=== PATIENT | male | born 1965 | race Caucasian/White ===

== ENCOUNTER 2020-05-18 04:06 | Inpatient (IN) | payer BC, SELFPAY ==
[2020-05-18] VITALS (12 sets, daily range): BP systolic 122–194; BP diastolic 75–113; PULSE 83–107; RESP 16–22; TEMP 36.4–38.6; O2SAT 90–100; BMI 29.1; BMI 27.6; BMI 24.8
--- NOTE | 2020-05-18 04:28 | XR_ITS ---
PROCEDURE: XR CHEST PORTABLE CLINICAL HISTORY: fever COMPARISON: No exams were available for comparison FINDINGS: The cardiomediastinal silhouette and pulmonary vascularity are within normal limits. The lungs are clear without infiltrates, suspicious nodules, or pleural effusions. No acute bony abnormalities. IMPRESSION: No acute findings. Dictated by: Ahmet Del Valle MD 05/18/2020 07:33 Ahmet Del Valle MD in [place] 05/18/2020 07:33
--- NOTE | 2020-05-18 04:35 | CT_ITS ---
PROCEDURE: CT ABDOMEN PELVIS W CON CLINICAL INDICATION: abdominal pain,constipation Nausea COMPARISON: No exams were available for comparison TECHNIQUE: IV Contrast: 75ML OPTIRAY 350 Oral Contrast None Axial images obtained with sagittal and coronal reformats. All CT scans at the facility use one or more dose reduction, viz: automated exposure control, ma/kV adjustment per patient size (including targeted exams where dose is matched to indication, i.e. head), or iterative reconstruction technique. FINDINGS: LOWER THORAX: There is a small hiatal hernia with nonspecific thickening of the distal esophagus. There are coronary artery calcifications ABDOMEN & PELVIS: A 2 cm hypodensity is present in the left hepatic lobe segment 2 and may represent a hepatic cyst and could be confirmed with ultrasound if clinically warranted. The spleen is enlarged at 15 cm. There is mild nodularity of the left adrenal gland nonspecific. The pancreas has an unremarkable appearance. There is a 5 mm stone in the mid polar region of the left kidney and may be within a calyceal diverticulum.. No hydronephrosis. No ureteral calculus. The gallbladder slightly distended. There is a moderate amount of retained colonic feces. No evidence of appendicitis or diverticulitis. There is a Malloy catheter present. No pelvic mass or abnormal fluid collection or focal inflammatory change. There is a sclerotic focus within the right femoral neck and the right acetabular region may be due to bone islands. Part of the left abdominal wall and spleen has not been included on the study. Will ask for the technologist to Ree process and see if this area can be included. If not then the exam will need to be repeated to include this area of the abdomen. IMPRESSION: No definite acute finding. There is a mild amount of retained colonic feces suggesting constipation. Please see above for detail. Mild splenomegaly. Incomplete evaluation of the spleen and left lateral abdominal wall as described above. Left nephrolithiasis. There is a small stone in a calyceal diverticulum Dictated by: Ahmet Del Valle MD 05/18/2020 07:06 Ahmet Del Valle MD in [facility] 05/18/2020 07:06
[2020-05-18 04:37] LABS: Microscopic, Urine URINE MICROSCOPIC (MICROSCOPIC)
[2020-05-18 04:41] LABS: Chloride 96 mmol/L (98-107)
[2020-05-18 04:42] LABS: Potassium 4.4 mmoL/L (3.5-5.1); Sodium 133 mmol/L (136-145)
[2020-05-18 04:43] LABS: Basophils # 0.1 K/mm3 (0-0.2); Basophils % 0.3 % (0.1-2.0); Eosinophils # 0.1 K/mm3 (0.0-0.4); Eosinophils % 0.2 % (0.1-12.0); Hematocrit 45.4 % (42.0-52.0); Hemoglobin 15.8 g/dL (14.1-18.0); Lymphocytes # 2.1 K/mm3 (0.7-4.5); Lymphocytes % 8.5 % (10-50); Mean Corpuscular HGB Conc 34.8 g/dL (31.8-35.4); Mean Corpuscular Volume 97.6 fl (80-94); Mean Platelet Volume 8.1 fl (7.4-10.4); Monocytes % 8.3 % (1.7-9.3); Neutrophils # 20.4 K/mm3 (1.8-7.8); Neutrophils % 82.7 % (37.0-80.0); Platelet Count 197 K/mm3 (142-424); Red Blood Count 4.65 M/mm3 (4.60-6.20); Red Cell Distribution Width 13.8 % (11.5-17.5); White Blood Count 24.6 K/mm3 (4.8-10.8)
[2020-05-18 04:44] LABS: Amylase 189 U/L (30-110); Anion Gap 19.4 mEq/L (5-15); Bilirubin,Unconjugated 1.3 mg/dL (0.0-1.1); Blood Urea Nitrogen 19 mg/dl (9-20); Carbon Dioxide 22 mmol/L (22.0-30.0); Creatinine Clearance Estimated 147 mL/min (50-200); Estimated Glomerular Filt Rate 101 ml/min (>60); GFR (African American) 122 ML/MIN (>60)
[2020-05-18 04:45] LABS: Alanine Aminotransferase 26 U/L (12-78); Albumin Level 4.2 g/dl (3.5-5.0); Alkaline Phosphatase 136 U/L (38-126); Aspartate Amino Transferase 21 U/L (17-59); Bilirubin,Direct 0.2 mg/dl (0.0-0.4); Bilirubin,Indirect 1.2 mg/dL (0.0-0.9); Bilirubin,Total 1.4 mg/dl (0.2-1.3); Calcium 9.7 mg/dl (8.4-10.2); Glucose 362 mg/dl (74-100)
[2020-05-18 04:59] LABS: Appearance,Urine CLEAR (Clear); Bilirubin,Urine Negative (Negative); Blood, Urine 1+ (Negative); Color,Urine YELLOW (Yellow); Glucose,Urine (UA) 3+ (Negative); Ketones,Urine Negative (Negative); Leukocyte Esterase,Urine TRACE (Negative); Nitrate,Urine Negative (Negative); PH,Urine 5.5 (5.0-8.5); Protein,Urine 1+ (Negative); Urobilinogen,Urine 0.2 EU/dl (0.2)
[2020-05-18 05:01] LABS: Lactic Acid 2.9 mmol/L (0.7-2.1); Lipase 788 U/L (23-300); MANUAL DIFFERENTIAL MANUAL DIFFERENTIAL (MANUAL DIFF)
[2020-05-18 05:17] LABS: Amorphous Sediment,Urine Trace /lpf; Bacteria,Urine 1+ /lpf; Mucus,Urine 1+ /lpf
[2020-05-18 05:45] LABS: Lymphocytes % 11 % (10-50); Monocytes % 8 % (2-9); Neutrophils % 80 % (42-76); Platelet Estimate Normal; RBC Morphology Normal; Total Cells Counted 100
--- NOTE | 2020-05-18 06:10 | PC.NURSE ---
PT TO CT VIA STRETCHER
--- NOTE | 2020-05-18 06:29 | HMH.EDNVD ---
ED Disposition Clinical Impression: Severe sepsis with acute organ dysfunction, Elevated lipase, Elevated amylase, Neuropathy Abdominal pain Qualifiers: Abdominal location: generalized Qualified Code(s): R10.84 - Generalized abdominal pain Diabetes mellitus Qualifiers: Diabetes mellitus type: type 1 Diabetes mellitus complication status: with neurologic complications Diabetes mellitus complication detail: with polyneuropathy Qualified Code(s): E10.42 - Type 1 diabetes mellitus with diabetic polyneuropathy Disposition: Admitted As Inpatient Condition on Discharge: Fair Instructions: DI for Acute Abdomen Referrals: PCP,No [Primary Care Provider] - - Critical Care Critical Care Time: No Attestation: On 05/18/20, the high probability of a clinically significant, sudden or life threatening deterioration of the following system(s) required my full and direct attention, intervention and personal management. The time I documented below is in addition to time spent performing reported procedures but includes the following listed in this critical care notation. Medical Decision Making - Medical Records Medical records reviewed: Yes: I reviewed the patient's medical records. - Jonathan Inquiry Pt receiving controlled substance: No Vital Signs: 05/18/20 04:07 05/18/20 04:44 05/18/20 05:37 Temperature 101.5 F H Temperature Source Rectal Pulse Rate [Right Radial] 107 H 102 H 91 H Respiratory Rate 22 18 18 Blood Pressure [Right Arm] 194/113 H 171/75 H 184/95 H Blood Pressure Mean [Right Arm] 140 107 124 Blood Pressure Source [Right Arm] Automatic Cuff Blood Pressure Position [Right Arm] Supine 02 Sat by Pulse Oximetry 99 97 95 Oxygen Delivery Method Room Air Room Air Room Air 05/18/20 06:06 Temperature Temperature Source Pulse Rate [Right Radial] 95 H Respiratory Rate 20 Blood Pressure [Right Arm] 192/103 H Blood Pressure Mean [Right Arm] 132 Blood Pressure Source [Right Arm] Blood Pressure Position [Right Arm] Supine 02 Sat by Pulse Oximetry 98 Oxygen Delivery Method Room Air - Lab Data Lab results reviewed: Yes: I reviewed the patient's lab results. Lab Results 05/18/20 04:10: WBC 24.6 H*, RBC 4.65, Hgb 15.8, Hct 45.4, MCV 97.6 H, MCH 34.0 H, MCHC 34.8, RDW 13.8, Plt Count 197, MPV 8.1, Neut % (Auto) 82.7 H, Lymph % (Auto) 8.5 L, [place] % (Auto) 8.3, Eos % (Auto) 0.2, Baso % (Auto) 0.3, Neut # (Auto) 20.4 H, Lymph # (Auto) 2.1, [place] # (Auto) 2.0 H, Eos # (Auto) 0.1, Baso # (Auto) 0.1, Total Counted 100, Neutrophils % (Manual) 80 H, Lymphocytes % (Manual) 11, Monocytes % (Manual) 8, Basophils % (Manual) 1.0, Platelet Estimate Normal, RBC Morphology Normal 05/18/20 04:10: Sodium 133 L, Potassium 4.4, Chloride 96 L, Carbon Dioxide 22, Anion Gap 19.4 H, BUN 19, Creatinine 0.80, Estimated Creat Clear 147, Estimated GFR 101, Est GFR ( Amer) 122, Glucose 362 H, Calcium 9.7, Total Bilirubin 1.4 H, Direct Bilirubin 0.2, Conjugated Bilirubin 0.0, Indirect Bilirubin 1.2 H, Unconjugated Bilirubin 1.3 H, AST 21, ALT 26, Alkaline Phosphatase 136 H, Total Protein 8.0, Albumin 4.2, Amylase 189 H 05/18/20 04:10: Lactate 2.9 H 05/18/20 04:10: Lipase 788 H 05/18/20 04:20: Urine Color Yellow, Urine Appearance Clear, Urine pH 5.5, Ur Specific [place] 1.020, Urine Protein 1+, Urine Glucose (UA) 3+, Urine Ketones Negative, Urine Blood 1+, Urine Nitrate Negative, Urine Bilirubin Negative, Urine Urobilinogen 0.2, Ur Leukocyte Esterase Trace, Urine RBC 3-5, Urine WBC 5-10, Amorphous Sediment Trace, Urine Bacteria 1+, Urine Mucus 1+ Result diagrams: 05/18/20 04:10 05/18/20 04:10 Orders (Tests/Meds): ED MEDICATIONS Generic Name Dose Route Start Last Admin Trade Name Tim PRN Reason Stop Dose Admin Ertapenem 1 gm/ Sodium 50 mls @ 100 mls/hr 05/18/20 07:45 05/18/20 07:38 Chloride IV 06/01/20 07:44 100 mls/hr Q24H ABDI Administration Protocol Discontinued Medications Generic Name Dose Route Start La
--- NOTE | 2020-05-18 06:36 | PC.NURSE ---
PT REMAINS IN CT
[2020-05-18 08:21] LABS: Amphetamine/Metha Screen,Urine Negative ng/ml (<1000); Benzodiazepines Screen,Urine Negative ng/ml (<200)
[2020-05-18 08:22] LABS: Barbiturates Screen,Urine Negative ng/ml (<200)
[2020-05-18 08:23] LABS: Cannabinoid Screen,Urine Positive ng/ml (<50); Cocaine Screen,Urine Negative ng/ml (<300)
[2020-05-18 08:24] LABS: Methadone Screen,Urine Negative ng/ml (<300)
--- NOTE | 2020-05-18 08:24 | HMH.HP ---
*Admission Date: 05/18/20 *Chief complaint: Unable to void *History of present illness: 55-year-old male presented to the ER by EMS for abd pain. On arrival to the ER pt patient states diffuse abd pain, constipation, chills, feet hurting secondary to DM2, and states hx of sepsis w/ similar symptoms. Pt has unstagable ulcers to bilat great toes. Pt self caths at home 3-4 times a day. 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 Patient states he is from [facility] but came here for a sister that lives close. Patient states he has had a neutropenic bladder for over a year and is been seen a urologist. Patient states when surprised him if he had a bladder infection because of having the cath so many times and not living in a clean environment. Patient admitted for sepsis and further work-up with urology consult. [facility] History I have reviewed the patient's past medical history: Yes Medical History: Reports:: Diabetes Mellitus Type 2 Denies:: Cancer, Diabetes Mellitus Type 1, MRSA *Have you ever received a pneumonia vaccine?: No *Have you received a flu vaccine this season?: No Amputation: No Fractures: No - *Social History Smoking Status: Current every day smoker # Packs/Day (cigarettes): 1 Alcohol Intake: never Substance Use Type: marijuana, painkillers *Occupational Status:: unemployed Housing: house Household Members: family *Travel in the last 8 weeks: None Family Hx:: No significant family history Review of Systems - Review of Systems Review of systems:: pertinent systems reviewed and negative unless documented below - Constitutional Reports fatigue, Reports fever(s), Reports weakness - Eyes Denies change in vision - ENT Denies bleeding gums, Denies sinus pressure - *Cardiovascular Reports leg sores, Denies chest pain with activity, Denies excessive sweating - *Respiratory Denies change in phlegm color - *Gastrointestinal Denies belching, Denies nausea, Denies vomiting - *Genitourinary Reports decreased urination - *Musculoskeletal Denies body aches - Integumentary/Breasts Reports sores, Denies bleeding lesions, Denies rash - *Neurologic Denies frequent falls, Denies seizure-like activity - Psychiatric Denies lack of enjoyment - Endocrine Denies excessive sweating - Hematologic/Lymphatic Denies easy bruising - Allergic/Immunologic Denies itchy eyes Meds Home Medications Medication Instructions Recorded Confirmed Type lisinopriL [Lisinopril 20mg Tab] 20 mg PO DAILY 05/18/20 05/18/20 History Allergies Allergy/AdvReac Type Severity Reaction Status Date / Time No Known Allergies Allergy Verified 05/18/20 04:27 Exam Vital signs and Labs for Last 24 Hours: Temp Pulse Resp BP Pulse Ox 101.5 F H 89 20 185/105 H 98 05/18/20 04:07 05/18/20 07:52 05/18/20 06:06 05/18/20 07:52 05/18/20 06:06 Laboratory Results - last 24 hr 05/18/20 04:10: WBC 24.6 H*, RBC 4.65, Hgb 15.8, Hct 45.4, MCV 97.6 H, MCH 34.0 H, MCHC 34.8, RDW 13.8, Plt Count 197, MPV 8.1, Neut % (Auto) 82.7 H, Lymph % (Auto) 8.5 L, [place] % (Auto) 8.3, Eos % (Auto) 0.2, Baso % (Auto) 0.3, Neut # (Auto) 20.4 H, Lymph # (Auto) 2.1, [place] # (Auto) 2.0 H, Eos # (Auto) 0.1, Baso # (Auto) 0.1, Total Counted 100, Neutrophils % (Manual) 80 H, Lymphocytes % (Manual) 11, Monocytes % (Manual) 8, Basophils % (Manual) 1.0, Platelet Estimate Normal, RBC Morphology Normal 05/18/20 04:10: Sodium 133 L, Potassium 4.4, Chloride 96 L, Carbon Dioxide 22, Anion Gap 19.4 H, BUN 19, Creatinine 0.80, Estimated Creat Clear 147, Estimated GFR 101, Est GFR ( Amer) 122, Glucose 362 H, Calcium 9.7, Total Bilirubin 1.4 H, Direct Bilirubin 0.2, Conjugated Bilirubin 0.0, Indirect Bilirubin 1.2 H, Unconjugated Bilirubin 1.3 H, AST 21, ALT 26, Alkaline Phosphatase 136 H, Total Protein 8.0, Albumin 4.2, Amylase 189 H 05/18/20 04:10: Lactate 2.9 H 05/18/20 04:10: Lipase
[2020-05-18 08:25] LABS: Opiate Screen,Urine Negative ng/ml (<300); Phencyclidine Screen,Urine Negative ng/ml (<25)
--- NOTE | 2020-05-18 08:31 | PC.NURSE ---
Received report from Jean Barfield RN @ this time. Pt still needs IGG/IGM antibodies done before admission to floor, Ebony Hardin notified of this.
[2020-05-18 08:35] LABS: Reflex Lactic Add Lactic Reflex
--- NOTE | 2020-05-18 08:37 | PC.NURSE ---
REPORT CALLED TO FLOOR
[2020-05-18 09:03] LABS: Coronavirus 19 IgG Antibody Negative (Negative); Coronavirus 19 IgM Antibody Negative (Negative)
--- NOTE | 2020-05-18 09:19 | PC.NURSE ---
pt arrived to the floor at this time
--- NOTE | 2020-05-18 11:19 | P.CONPHA_ITS ---
[facility] Pharmacy VTE Monitoring - Patient Demographics Admission date: 05/18/20 Report Date: 05/18/20 Time: 11:20 Allergies/Adverse Reactions: Patient Allergies No Known Allergies Allergy (Verified 05/18/20 04:27) Height: 1.83 m Weight: 83.121 kg Patient Problems: Current Active Problems Severe sepsis with acute organ dysfunction (Acute) Abdominal pain (Acute) Elevated lipase (Acute) Elevated amylase (Acute) Diabetes mellitus (Acute) Neuropathy (Acute) Neurogenic bladder (Acute) - VTE Risk Labs: VTE Related Lab Results Hgb 15.8 g/dL (14.1-18.0) 05/18/20 04:10 Hct 45.4 % (42.0-52.0) 05/18/20 04:10 Plt Count 197 K/mm3 (142-424) 05/18/20 04:10 BUN 19 mg/dl (9-20) 05/18/20 04:10 Creatinine 0.80 mg/dl (0.66-1.25) 05/18/20 04:10 Estimated Creat Clear 147 mL/min (50-200) 05/18/20 04:10 Was VTE Risk Assessment Performed: Yes VTE Score: 7 VTE Risk Level: Moderate Risk Clinical Trial Participant: No - Prophylaxis VTE Prophylaxis Ordered?: Yes Types of VTE Prophylaxis: TEDS Knee High
--- NOTE | 2020-05-18 11:24 | SW/DCPLANNER ---
I have spoke with this patient regarding discharge plans. Patient stated that he has been homeless since the end of March. Patient stated that he has lost his job and his home. Patient has stayed at [facility] some nights in [facility]. Patient stated that his girlfriend resides in [place] and he may live with her at time of discharge. Patient stated that his sister resides here in [place] but he can not live with her due to it not being clean and subsidized housing. I spoke with patient regarding homeless longterm in surrounding areas and patient stated that he is not interested stating I have too high of a morale for a longterm . Patient has refused resources at this time. I will follow up with patient this evening regarding any questions or concerns he may have for time of discharge. Discharge date is unknown at this time.
--- NOTE | 2020-05-18 11:31 | HMH.PHAINT ---
CLARIFIED HOME MEDICATION LIST WITH [facility] IN [place].
[2020-05-18 12:04] LABS: POC Glucose,Bedside 300 (70-110)
--- NOTE | 2020-05-18 12:34 | HMH.CONS ---
*Admission Date: 05/18/20 *Reason for consult:: History of hypotonic bladder/possible urosepsis *History of present illness: Patient is a 55-year-old white male who gives a history of neurogenic bladder diagnosed by Dr. Harrison Leo, a urologist in the [facility]. Patient states this was recently diagnosed in 2018 and that he had a Malloy catheter for about a year and has been self catheterizing 3-4 times a day for the past year. He uses disposable catheters. He states his social situation has deteriorated the past few months due to the COVID 19 pandemic and he is bounced around from a place to place but states he has been compliant with catheterizing 3-4 times a day. He recently has been in the [facility] with friends. He is referred for possible urologic source of sepsis. He was admitted with lower abdominal pain early this morning. His white count was elevated at 24,000. Creatinine is normal at 0.8. His electrolytes are normal. His alkaline phosphatase amylase and lipase are elevated. His urinalysis shows a trace amount of leukocyte esterase and 1+ bacteria but is nitrite negative. Malloy catheter was placed and clear urine is currently draining. He denies any recent problems catheterizing and denies any cloudy urine with catheterizations. A CT scan was performed which showed no acute findings. There was a mild amount of retained colonic feces. Small stone noted in the left lateral renal calyx. It is nonobstructing. Patient states a previous episode of abscess about a year ago. He denies any alcohol use but does admit to marijuana use. He states that he is able to void small amounts between catheterizations usually. He is currently on Invanz. [facility] History Medical History: Reports:: Diabetes Mellitus Type 2, Hypertension Denies:: Cancer, Diabetes Mellitus Type 1, MRSA *Have you ever received a pneumonia vaccine?: No *Have you received a flu vaccine this season?: Yes Other Surgeries: Yes: Hernia Repair Amputation: No Fractures: No - *Social History Last grade of school completed: GED Smoking Status: Current every day smoker Tobacco Type: cigarettes # Packs/Day (cigarettes): 1 Alcohol Intake: never Substance Use Type: marijuana Last Used Substance: just [employer] *Occupational Status:: unemployed Housing: homeless Household Members: family *Travel in the last 8 weeks: None Family Hx:: Diabetes, Heart Attack, Mental illness Review of Systems - Review of Systems Review of systems:: pertinent systems reviewed and negative unless documented below - *Neurologic Reports weakness, Denies frequent falls, Denies seizure-like activity Meds Home Medications Medication Instructions Recorded Confirmed Type Insulin Glargine,Hum.rec.anlog 20 unit SQ DAILY 05/18/20 05/18/20 History [Basaglar Kwikpen U-100] Insulin Lispro [Insulin Lispro 0 - 12 unit SQ TIDWM 05/18/20 05/18/20 History Kwikpen U-100] Pregabalin [Lyrica 100mg Cap] 100 mg PO TID 05/18/20 05/18/20 History lisinopriL [Lisinopril 40mg Tablet] 20 mg PO DAILY 05/18/20 05/18/20 History Allergies Allergy/AdvReac Type Severity Reaction Status Date / Time No Known Allergies Allergy Verified 05/18/20 04:27 Exam Vital signs and Labs for Last 24 Hours: Temp Pulse Resp BP Pulse Ox 98.1 F 92 H 18 137/79 90 L 05/18/20 09:26 05/18/20 09:26 05/18/20 09:26 05/18/20 09:26 05/18/20 09:26 Laboratory Results - last 24 hr 05/18/20 04:10: WBC 24.6 H*, RBC 4.65, Hgb 15.8, Hct 45.4, MCV 97.6 H, MCH 34.0 H, MCHC 34.8, RDW 13.8, Plt Count 197, MPV 8.1, Neut % (Auto) 82.7 H, Lymph % (Auto) 8.5 L, [place] % (Auto) 8.3, Eos % (Auto) 0.2, Baso % (Auto) 0.3, Neut # (Auto) 20.4 H, Lymph # (Auto) 2.1, [place] # (Auto) 2.0 H, Eos # (Auto) 0.1, Baso # (Auto) 0.1, Total Counted 100, Neutrophils % (Manual) 80 H, Lymphocytes % (Manual) 11, Monocytes % (Manual) 8, Basophils % (Manual) 1.0, Platelet Estimate Normal, RBC Morphology Normal 05/18/20 04:10: Sodium 133 L, Pota
--- NOTE | 2020-05-18 14:56 | US_ITS ---
PROCEDURE: US GALLBLADDER CLINICAL INDICATION: abd pain COMPARISON: CT CT ABDOMEN PELVIS W CON from 05/18/2020 FINDINGS: Pancreas: Unremarkable/Not well seen Liver: There is a small hepatic cyst within the left hepatic lobe measuring 2 cm.. There is appropriate direction of blood flow within a non dilated portal vein. Right kidney: Unremarkable appearing. No hydronephrosis. Gallbladder: No stones are evident. There is no gallbladder wall thickening. Common duct is normal in diameter. IMPRESSION: Negative gallbladder ultrasound. No stones evident. 2 cm hepatic cyst Dictated by: Ahmet Del Valle MD 05/19/2020 09:54 Ahmet eDl Valle MD in [place] 05/19/2020 09:54
[2020-05-18 15:44] LABS: Amylase 113 U/L (30-110)
[2020-05-18 15:45] LABS: Lipase 174 U/L (23-300)
[2020-05-18 17:17] LABS: POC Glucose,Bedside 261 (70-110)
[2020-05-18 18:23] LABS: Ethyl Alcohol < 10 mg/dl (0-10)
[2020-05-18 20:32] LABS: POC Glucose,Bedside 209 (70-110)
[2020-05-19] VITALS: BP 126/78; PULSE 94; RESP 16; TEMP 36.9; O2SAT 95
[2020-05-19 04:00] VITALS: BP 131/78; PULSE 86; RESP 18; TEMP 36.9; O2SAT 97
--- NOTE | 2020-05-19 05:28 | PC.NURSE ---
shift summary, pt has been appropriate and cooperative entire shift, was anxious at beginning of shift, but did calm down as shift progressed, has complained of pain in lower left abdomen and nausea, both treated per mar with satisfactory results, pt has not slept this shift and has been talkative about his living situation, pt has ambulated in his room, and took a shower, hanson is in place, draining cloudy mindi urine, systolic BP from 122-131, HR 83-94, and has remained afebrile
[2020-05-19 05:42] VITALS: BMI 24.5
[2020-05-19 05:53] LABS: POC Glucose,Bedside 203 (70-110)
[2020-05-19 06:56] LABS: Basophils % 0.2 % (0.1-2.0); Eosinophils # 0.1 K/mm3 (0.0-0.4); Eosinophils % 0.4 % (0.1-12.0); Hematocrit 37.5 % (42.0-52.0); Lymphocytes # 1.5 K/mm3 (0.7-4.5); Lymphocytes % 10.4 % (10-50); Mean Corpuscular HGB Conc 34.7 g/dL (31.8-35.4); Mean Corpuscular Hemoglobin 33.9 pg (27.0-31.2); Mean Corpuscular Volume 97.6 fl (80-94); Monocytes % 7.4 % (1.7-9.3); Neutrophils # 11.4 K/mm3 (1.8-7.8); Neutrophils % 81.7 % (37.0-80.0); Platelet Count 156 K/mm3 (142-424); Red Blood Count 3.84 M/mm3 (4.60-6.20); Red Cell Distribution Width 13.1 % (11.5-17.5)
[2020-05-19 07:09] LABS: Chloride 102 mmol/L (98-107); Sodium 134 mmol/L (136-145)
[2020-05-19 07:10] LABS: Potassium 4.2 mmoL/L (3.5-5.1)
[2020-05-19 07:12] LABS: Amylase 78 U/L (30-110); Anion Gap 10.2 mEq/L (5-15); Blood Urea Nitrogen 21 mg/dl (9-20); Carbon Dioxide 26 mmol/L (22.0-30.0); Creatinine Clearance Estimated 165 mL/min (50-200); Estimated Glomerular Filt Rate 141 ml/min (>60); GFR (African American) 171 ML/MIN (>60); Lipase 106 U/L (23-300)
[2020-05-19 07:13] LABS: Glucose 220 mg/dl (74-100)
--- NOTE | 2020-05-19 07:34 | PC.NURSE ---
pt had no episodes of vomiting t/o shift
[2020-05-19 08:00] VITALS: BP 135/72; PULSE 79; RESP 18; TEMP 36.6; O2SAT 98
[2020-05-19 08:10] VITALS: O2SAT 98
[2020-05-19 10:54] VITALS: BMI 24.5
--- NOTE | 2020-05-19 11:06 | HMH.DCSUM ---
General - General Admission date:: 05/18/20 Discharge date: 05/19/20 HPI HPI: 55-year-old male presented to the ER by EMS for abd pain. On arrival to the ER pt patient states diffuse abd pain, constipation, chills, feet hurting secondary to DM2, and states hx of sepsis w/ similar symptoms. Pt has unstagable ulcers to bilat great toes. Pt self caths at home 3-4 times a day. 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 Patient states he is from [facility] but came here for a sister that lives close. Patient states he has had a neutropenic bladder for over a year and is been seen a urologist. Patient states when surprised him if he had a bladder infection because of having the cath so many times and not living in a clean environment. Patient admitted for sepsis and further work-up with urology consult. Hospital Course Hospital Course: pt has did better with bowel rest and ivf and meds - no fever reported and he reports he thinks he can tolerate diet - he was seen by urology-janine is a 55-year-old white male who gives a history of neurogenic bladder diagnosed by Dr. Harrison Leo, a urologist in the [facility]. Patient states this was recently diagnosed in 2018 and that he had a Malloy catheter for about a year and has been self catheterizing 3-4 times a day for the past year. He uses disposable catheters. He states his social situation has deteriorated the past few months due to the COVID 19 pandemic and he is bounced around from a place to place but states he has been compliant with catheterizing 3-4 times a day. He recently has been in the [facility] with friends. He is referred for possible urologic source of sepsis. He was admitted with lower abdominal pain early this morning. His white count was elevated at 24,000. Creatinine is normal at 0.8. His electrolytes are normal. His alkaline phosphatase amylase and lipase are elevated. His urinalysis shows a trace amount of leukocyte esterase and 1+ bacteria but is nitrite negative. Malloy catheter was placed and clear urine is currently draining. He denies any recent problems catheterizing and denies any cloudy urine with catheterizations. A CT scan was performed which showed no acute findings. There was a mild amount of retained colonic feces. Small stone noted in the left lateral renal calyx. It is nonobstructing. Patient states a previous episode of abscess about a year ago. He denies any alcohol use but does admit to marijuana use. He states that he is able to void small amounts between catheterizations usually. He is currently on Invanz. no growth at this time on urine culture and blood considered to be not infective - his labs have improved - he wishes to be d/c today despite our wish for am - he will resume prev treatment and may see us next week and gb u/s was neg and declined and marriage and family social worker help for his home issues . Objective Vital signs: Temp Pulse Resp BP Pulse Ox 97.9 F 79 18 135/72 98 05/19/20 08:00 05/19/20 08:00 05/19/20 08:00 05/19/20 08:00 05/19/20 08:10 no acute distress - *Routine HEENT Exam Head: Present: normocephalic Eye: Present: EOMI, PERRL ENT: Present: mucous membranes dry - *Routine Neck Exam Present: supple - *Routine Respiratory Exam Absent: respiratory distress - *Routine Cardiovascular Exam Present: RRR - *Routine Abdominal Exam Present: soft - *Routine Extremities Exam Present: full ROM - Routine Back/Spine/Pelvis Exam Back/Spine: Present: full ROM - *Routine Skin Exam Present: intact - *Routine Neurological Exam Present: alert, CN II-XII intact - Routine Psychiatric Exam Present: normal affect Results Labs on day of discharge: Labs from last 24 hours 05/19/20 05/19/20 05/19/20 06:28 06:28 05:46 WBC 14.0 H D RBC 3.84 L Hgb 13.0 L Hct 37.5 L MCV 97.6 H MCH 33.9 H MCHC 34.
[2020-05-19 11:16] LABS: Calcium 8.7 mg/dl (8.4-10.2)
--- NOTE | 2020-05-19 11:40 | PC.NURSE ---
A&OX4. PT HAS TOLERATED ROOM AIR WELL THROUGHOUT SHIFT. RESPIRATIONS REGULAR AND UNLABORED. LUNG SOUNDS BILATERALLY CLEAR. ACTIVE BOWEL SOUNDS HEARD IN ALL 4 QUADRANTS. SOFT AND NONTENDER. SANTIAGO CATH REMOVED W 10ML PULLED OUT OF BALLOON. URINE NOTED CLOUDY AND YELLOW. PT HAS REPORTED NAUSEA ONCE AND WAS ADMINISTERED ZOFRAN. ON REASSESSMENT, PT STATED NAUSEA HAD EASED. NO VOMITTING WITNESSED BUT PT STATES HE HAS THROWN UP. I SAW PATIENT W FINGER DOWN HIS THROAT TRYING TO GAG HIMSELF. PT STATES HE WANTS TO GO HOME. HE HAS BEEN VERY ANXIOUS AND PACING THE HALLWAY AND HIS ROOM SINCE THE BEGINNING OF SHIFT. NO REPORTS OF PAIN. HAND ANIMAL THERAPIST EQUAL. +2 PULSES NOTED THROUGHOUT. PT IS CURRENTLY LYING IN BED RESTING. BED IN LOWEST POSITION. CALL LIGHT WITHIN REACH. VSS. WILL CONTINUE TO MONITOR. PT IS GETTING READY TO BE DISCHARGED. IV IS GETTING READY TO BED REMOVED. PHARMACY AT BEDSIDE TEACHING MEDS. GOING TO LET PT EAT LUNCH THEN WILL DISCHARGE HIM. PT VERBALIZES UNDERSTANDING OF EVERYTHING AND DISCHARGE INSTRUCTIONS.
[2020-05-19 19:58] LABS: POC Glucose,Bedside 286 (70-110)
== END 2020-05-19 12:05 | disposition home or self-care (01) | DRG 698 ==
LOC: ER 08:03 → 2ND 08:16
PROVIDERS: Nurse Practitioner Family; Admitting Provider Emergency Medicine; Emergency Provider Emergency Medicine; Visit Provider Emergency Medicine
DX: N31.9 Neuromuscular dysfunction of bladder, unspecified (principal); R65.20 Severe sepsis without septic shock; E11.42 Type 2 diabetes mellitus with diabetic polyneuropathy; Z72.0 Tobacco use; Z79.4 Long term (current) use of insulin; Z59.0 Homelessness
CPT/HCPCS: 36415; 71045; 74177; 76705; 80048; 80076; 80305; 81001; 82150; 82962; 83036; 83605; 83690; 85007; 85025; 86328; 87040; 87077; 87086; 87088; 87186; 96365; 96366; 96367; 96375; 96376; 99285; J1335; J2405; Q9967

== ENCOUNTER 2020-11-25 14:14 | Emergency (ER) | payer BC, SELFPAY ==
--- NOTE | 2020-11-25 13:57 | ECG_ITS ---
APPROVED REPORT Exam: Resting ECG HR:77 bpm ECG Measurements Heart Rate 77 AXES MN 148 P 13 QRSd 98 QRS 33 QT 354 T 34 QTc 400 Conclusion Normal sinus rhythm Normal ECG Electronically signed by : Barry Otoole, 11/26/2020 21:10:05
[2020-11-25 14:28] VITALS: BP 134/89; PULSE 82; RESP 18; TEMP 36.8; O2SAT 98; BMI 27.1
--- NOTE | 2020-11-25 14:35 | XR_ITS ---
PROCEDURE: XR CHEST PORTABLE CLINICAL HISTORY: CHEST PAIN COMPARISON: CR XR CHEST PORTABLE from 05/18/2020 FINDINGS: The cardiomediastinal silhouette and pulmonary vascularity are within normal limits. The lungs are clear without infiltrates, suspicious nodules, or pleural effusions. No acute bony abnormalities. IMPRESSION: No acute findings. Dictated by: Dr. Eliseo June MD 11/25/2020 15:50 Dr. Eliseo June MD in [place] 11/25/2020 15:50
[2020-11-25 14:44] LABS: Basophils % 0.4 % (0.1-2.0); Eosinophils # 0.1 K/mm3 (0.0-0.4); Eosinophils % 1.2 % (0.1-12.0); Hematocrit 47.8 % (42.0-52.0); Hemoglobin 15.6 g/dL (14.1-18.0); Lymphocytes % 25.4 % (10-50); Mean Corpuscular HGB Conc 32.6 g/dL (31.8-35.4); Mean Corpuscular Volume 98.1 fl (80-94); Mean Platelet Volume 7.6 fl (7.4-10.4); Monocytes # 0.8 K/mm3 (0.1-1.0); Monocytes % 6.4 % (1.7-9.3); Neutrophils # 7.7 K/mm3 (1.8-7.8); Neutrophils % 66.6 % (37.0-80.0); Platelet Count 195 K/mm3 (142-424); Red Blood Count 4.87 M/mm3 (4.60-6.20); Red Cell Distribution Width 12.8 % (11.5-17.5); White Blood Count 11.6 K/mm3 (4.8-10.8)
[2020-11-25 14:55] LABS: Anion Gap 12.5 mEq/L (5-15); Blood Urea Nitrogen 9 mg/dl (9-20); Calcium 9.6 mg/dl (8.4-10.2); Carbon Dioxide 25 mmol/L (22.0-30.0); Chloride 103 mmol/L (98-107); Creatinine Clearance Estimated 157 mL/min (50-200); Estimated Glomerular Filt Rate 118 ml/min (>60); GFR (African American) 143 ML/MIN (>60); Glucose 274 mg/dl (74-100); Potassium 4.5 mmoL/L (3.5-5.1); Sodium 136 mmol/L (136-145)
[2020-11-25 15:07] LABS: Troponin I < 0.01 ng/ml (0.00-0.034)
--- NOTE | 2020-11-25 15:34 | HMH.EDGENADL ---
ED Disposition Clinical Impression: Pyelonephritis Disposition: Home, Self-Care Condition on Discharge: Fair Additional Instructions: Take medication as prescribed. May take Tylenol and ibuprofen as needed for fever reduction and pain relief Please follow-up with your PCP in 3 to 5 days If symptoms persist or worsen, please return to the ED for further evaluation Prescriptions: Cefdinir [Omnicef 300mg Capsule] 300 mg PO BID #10 cap Prescription Printed Referrals: PCP,No [Primary Care Provider] - - Critical Care Critical Care Time: No Attestation: On 11/25/20, the high probability of a clinically significant, sudden or life threatening deterioration of the following system(s) required my full and direct attention, intervention and personal management. The time I documented below is in addition to time spent performing reported procedures but includes the following listed in this critical care notation. Medical Decision Making - Medical Records Medical records reviewed: Yes: I reviewed the patient's medical records. - Jonathan Inquiry Pt receiving controlled substance: No Vital Signs: 11/25/20 14:28 Temperature 98.3 F Temperature Source Oral Pulse Rate [Right] 82 Respiratory Rate 18 Blood Pressure [Right Arm] 134/89 Blood Pressure Mean [Right Arm] 104 02 Sat by Pulse Oximetry 98 Oxygen Delivery Method Room Air - Lab Data Lab Results 11/25/20 14:13: WBC 11.6 H, RBC 4.87, Hgb 15.6, Hct 47.8, MCV 98.1 H, MCH 32.0 H, MCHC 32.6, RDW 12.8, Plt Count 195, MPV 7.6, Neut % (Auto) 66.6, Lymph % (Auto) 25.4, [place] % (Auto) 6.4, Eos % (Auto) 1.2, Baso % (Auto) 0.4, Neut # (Auto) 7.7, Lymph # (Auto) 3.0, [place] # (Auto) 0.8, Eos # (Auto) 0.1, Baso # (Auto) 0.0 11/25/20 14:13: Sodium 136, Potassium 4.5, Chloride 103, Carbon Dioxide 25, Anion Gap 12.5, BUN 9, Creatinine 0.70, Estimated Creat Clear 157, Estimated GFR 118, Est GFR ( Amer) 143, Glucose 274 H, Calcium 9.6, Troponin I < 0.01 11/25/20 15:30: Urine Color Yellow, Urine Appearance Cloudy, Urine pH 6.0, Ur Specific [place] 1.020, Urine Protein Trace, Urine Glucose (UA) 3+, Urine Ketones Negative, Urine Blood Trace-i, Urine Nitrate Positive, Urine Bilirubin Negative, Urine Urobilinogen 0.2, Ur Leukocyte Esterase 1+ A, Urine RBC 3-5, Urine WBC 50-100, Ur Squamous Epith Cells 3-5, Urine Bacteria 2+ Result diagrams: 11/25/20 14:13 11/25/20 14:13 Orders (Tests/Meds): ORDERS Category Date Time Status Troponin I Q3H Lab 11/25/20 17:45 Ordered Troponin I Q3H Lab 11/25/20 20:45 Ordered Urine Culture Stat Micro 11/25/20 15:30 Received Medical Decision Narrative: Patient presents with suprapubic tenderness and urinary frequency. Patient states he has a history of neurogenic bladder but has worsening pain today along with right-sided CVA tenderness. Differential diagnosis includes but not limited to uncomplicated cystitis, pyelonephritis, prostatitis. Patient had basic labs including CBC, CMP and a UA obtained. I reviewed patient's labs. Patient CBC demonstrated mildly elevated white blood cell count and hyperglycemia. Patient's UA did have some squamous cells, however did have white blood cells in the urine and nitrites and leuk esterase, given his symptoms, I do believe that he has pyelonephritis. As such, he was discharged in stable condition with a prescription for cefdinir. General Adult HPI - General Chief complaint: Chest Pain Stated complaint: CHEST PAIN Time Seen by Provider: 11/25/20 14:30 Mode of Arrival: Family Vehicle Limitations: No Limitations Description of Symptoms (Recalled from ER Triage Doc. by RN): PT C/O RIGHT FLANK PAIN AND LEFT FLANK PAIN AND CHEST PAIN STARTING YESTERDAY. PT DENIES CARDIAC HX. PT REPORTS HX OF KIDNEY STONES - Related Data Home Medications Medication Instructions Recorded Confirmed Insulin Glargine,Hum.rec.anlog 20 unit SQ DAILY 05/18/20 05/18/20 [Basaglar Maureen U-100] Insulin Lispro [Insul
[2020-11-25 15:42] LABS: Microscopic, Urine URINE MICROSCOPIC (MICROSCOPIC)
[2020-11-25 15:48] LABS: Appearance,Urine CLOUDY (Clear); Bilirubin,Urine Negative (Negative); Blood, Urine TRACE-I (Negative); Color,Urine YELLOW (Yellow); Glucose,Urine (UA) 3+ (Negative); Ketones,Urine Negative (Negative); Leukocyte Esterase,Urine 1+ (Negative); Nitrate,Urine POSITIVE (Negative); Protein,Urine TRACE (Negative); Urobilinogen,Urine 0.2 EU/dl (0.2)
[2020-11-25 15:58] LABS: Bacteria,Urine 2+ /lpf; WBC,Urine 50-100 #/hpf (0-3)
[2020-11-25 16:30] VITALS: BP 145/89; PULSE 78; RESP 20; TEMP 37.1; O2SAT 100
--- NOTE | 2020-11-25 16:38 | PC.NURSE ---
AT DISCHARGE, PATIENT REFUSED WHEELCHAIR ASSISTANCE AT DISCHARGE. ELSA STAPLES WALKED OUT WITH PATIENT TO ENSURE HE HAS A RIDE. ELSA STAPLES OFFERED TO CALL HIS SISTER FOR TRANSPORTATION. PT RAN OUT OF THE LOBBY AND STARTED MOVING ON HIS HANDS AND KNEES IN THE PARKING LOT. [employer] CALLED THE LOCAL [employer]
== END 2020-11-25 16:40 | disposition home or self-care (01) ==
PROVIDERS: Emergency Provider Emergency Medicine
DX: N12 Tubulo-interstitial nephritis, not specified as acute or chronic (principal); N31.9 Neuromuscular dysfunction of bladder, unspecified; Z87.442 Personal history of urinary calculi; I10 Essential (primary) hypertension; E11.65 Type 2 diabetes mellitus with hyperglycemia; Z79.4 Long term (current) use of insulin; F17.210 Nicotine dependence, cigarettes, uncomplicated; Z79.899 Other long term (current) drug therapy
CPT/HCPCS: 71045; 80048; 81001; 84484; 85025; 87086; 87088; 87186; 93005; 99283

== ENCOUNTER 2022-11-02 09:09 | Emergency (ER) | payer BC, SELFPAY ==
--- NOTE | 2022-11-02 09:19 | HMH.EDGENADL ---
Discharge Plan Disposition Patient Disposition: Home, Self-Care Condition: Good Prescriptions Prescriptions: New ondansetron HCl 4 mg tablet 4 mg PO DAILY PRN (Reason: nausea and vomiting) Qty: 7 0RF cephalexin 500 mg capsule 500 mg PO Q6H 7 Days Qty: 28 0RF No Action cefdinir 300 MG capsule 300 mg PO BID Qty: 10 0RF lisinopril 40 MG tablet 20 mg PO DAILY pregabalin 100 MG capsule 100 mg PO TID insulin lispro 100 UNIT/ML insulin pen 0 - 12 unit SQ TIDWM insulin glargine 100 UNIT/ML insulin pen 20 unit SQ DAILY levofloxacin 500 MG tablet 500 mg PO DAILY Qty: 7 0RF Referrals Follow up/Referrals: Provider,Referral, MD [Primary Care Provider] - See instructions Activity Restrictions/Add. Instructions Additional Instructions/Restrictions: Your CT scan showed an 8 mm lung nodule. You should get a repeat CT in 3-6 months to assess to see if this has changed at all and make sure it is benign / not cancer. Take the antibiotic as prescribed. Use the zofran for nausea as needed. Return with concerns or new symptoms. Clinical Impressions Clinical Impression: UTI (urinary tract infection), Incidental lung nodule, greater than or equal to 8mm Stand Alone Forms Stand Alone Forms: Work/School Release Instructions Patient Instructions: DI for Acute Cystitis Discharge ED Provider: Elli Villegas General Adult HPI General Chief complaint: Abdominal Pain Stated complaint: Stomach pain Time Seen by Provider: 11/02/22 09:19 History of Present Illness HPI narrative: The patient is a 57 year old male with a history of diabetes, neurogenic bladder, and known liver cyst who presents to the ED with abdominal pain. He notes lower abdominal pain for the past week. He presented today because the pain wasn't going away and he was starting to feel fatigued. He said he vomited one time and also had some loose stools. He self-caths twice a day due to his neurogenic bladder and states he has not had increased pain but notes it was cloudy. Has had subjective fever. Also notes some epigastric pain and shortness of breath. He has had pain like this before with kidney stones but states it somewhat different. No headaches. No sick contacts that he knows of. Related Data Home Medications Medication Instructions Recorded Confirmed insulin glargine 100 unit/mL (3 20 unit SQ DAILY Diabetes 05/18/20 05/18/20 mL) subcutaneous pen insulin lispro 100 unit/mL 0 - 12 unit SQ TIDWM Diabetes 05/18/20 05/18/20 subcutaneous pen lisinopril 40 mg tablet 20 mg PO DAILY Hypertension 05/18/20 05/18/20 pregabalin 100 mg capsule 100 mg PO TID Pain 05/18/20 05/18/20 Previous Rx's Medication Instructions Recorded levofloxacin 500 mg tablet 500 mg PO DAILY #7 tabs 05/19/20 cefdinir 300 mg capsule 300 mg PO BID #10 caps 11/25/20 cephalexin 500 mg capsule 500 mg PO Q6H UTI 7 days #28 caps 11/02/22 ondansetron HCl 4 mg tablet 4 mg PO DAILY PRN nausea and 11/02/22 vomiting #7 tabs Allergies Allergy/AdvReac Type Severity Reaction Status Date / Time amoxicillin Allergy Verified 11/02/22 09:27 [facility] Disclaimer: The information contained in this section may have been updated after the patient was seen, as this information can be updated by other users. Social History Smoking Status: Current every day smoker tobacco type: cigarettes packs per day: 1 alcohol intake: never substance use type: marijuana current occupational status: unemployed Travel in the last 8 weeks: None household members: family housing: homeless ROS Obtained: Yes All systems reviewed & no additional complaints except as documented Physical Exam General General appearance: alert and in no apparent distress Head Head exam: atraumatic and normocephalic Eye Eye exam: Present normal appearance, PERRL and EOMI; Absent scleral icterus ENT ENT exam: Present normal external ear exam Neck Neck exam:
[2022-11-02 09:23] VITALS: BP 163/94; PULSE 73; RESP 16; TEMP 36.6; O2SAT 97; BMI 29.0
--- NOTE | 2022-11-02 09:34 | CT_ITS ---
PROCEDURE INFORMATION: Exam: CT Abdomen And Pelvis With Contrast Exam date and time: 11/02/2022 10:03 AM Age: 57 years old Clinical indication: Abdominal pain; Localized; Lower; Additional info: Lower abdominal pain and tenderness, n/v/d TECHNIQUE: Imaging protocol: Computed tomography of the abdomen and pelvis with contrast. Radiation optimization: All CT scans at this facility use at least one of these dose optimization techniques: automated exposure control; mA and/or kV adjustment per patient size (includes targeted exams where dose is matched to clinical indication); or iterative reconstruction. Contrast material: ISOVUE; Contrast volume: 75 ml; Contrast route: IV; REPORTING DATA: Count of CT and Cardiac NM exams in prior 12 months: This patient has received 0 known CTs and 0 known cardiac nuclear medicine studies in the 12 months prior to the current study. COMPARISON: CT ABDOMEN PELVIS W CON 05/18/2020 6:24 AM FINDINGS: Lungs: 8 mm lung nodule is present in the inferior posterior lingula adjacent to the pericardium (image 1, series 3). No airspace consolidation or pleural effusions. Liver: 2.1 cm benign liver cyst in the left lobe. No other liver masses or evidence of fat deposition. Gallbladder and bile ducts: Gallbladder is contracted and may have 1 or more punctate calcified stones versus wall calcification. No biliary ductal dilatation. Pancreas: Normal. No ductal dilation. Spleen: Normal. No splenomegaly. Adrenal glands: Heterogeneous right adrenal mass measures 2 x 1.8 cm and is unchanged since 05/18/2020. No left adrenal mass. Kidneys and ureters: Left kidney has a few cortical scars and a nonobstructing 3 mm stone in the midportion. No renal masses or hydroureteronephrosis. Stomach and bowel: Normal. No intestinal masses, bowel wall thickening, or abnormal dilatation. Appendix: No evidence of appendicitis. Intraperitoneal space: No free air. No masses or significant fluid collection. Vasculature: Mild atherosclerotic calcifications. No aneurysms or intimal dissections. Calcified and hypodense plaque in the left common femoral artery causes 50-69% stenosis. Celiac trunk and mesenteric arteries have uniform contrast opacification with no filling defects. Lymph nodes: No enlarged lymph nodes. Urinary bladder: Bladder wall has mild diffuse wall thickening measuring 6-7 mm. No asymmetric wall enhancement or masses are identified. Reproductive: Prostate measures 5.1 cm in transverse diameter and has no abnormal nodularity. Bones/joints: 0.6 cm sclerotic bone island in the right sacrum adjacent to the 1st ala is unchanged since 05/18/2020. No other focal bone lesions or fractures. Multilevel degenerative disc disease causes no mass effects and is unchanged. Soft tissues: No abdominal wall defects or masses. IMPRESSION: 1. No acute abnormalities in the abdomen and pelvis thought to be a source of lower abdominal pain. 2. Mild diffuse bladder wall thickening probably indicates hypertrophy from chronic bladder outlet obstruction. Cystitis is a consideration. 3. Left kidney has a few cortical scars more likely due to previous infection or chronic atrophic pyelonephritis (reflux nephropathy) than ischemic events. 4. 3 mm nonobstructing stone in the mid left kidney. 5. 50-69% stenosis in the left common femoral artery due to calcified and hypodense plaque. 6. 8 mm lung nodule in the left lingula is of unknown age. This portion of the lung was probably not imaged on 05/18/2020 CT scan. For patients at low risk (minimal or absent history of smoking and of other known risk factors), recommend CT Chest at
[2022-11-02 09:37] LABS: Microscopic, Urine URINE MICROSCOPIC (MICROSCOPIC)
[2022-11-02 09:41] LABS: Appearance,Urine SL CLOUDY (Clear); Bilirubin,Urine Negative (Negative); Blood, Urine Negative (Negative); Chloride 104 mmol/L (98-107); Color,Urine YELLOW (Yellow); Glucose,Urine (UA) 3+ (Negative); Ketones,Urine Negative (Negative); Leukocyte Esterase,Urine Negative (Negative); Nitrate,Urine Negative (Negative); Protein,Urine TRACE (Negative); Sodium 138 mmol/L (136-145); Urobilinogen,Urine 0.2 EU/dl (0.2)
[2022-11-02 09:42] LABS: Potassium 4.5 mmoL/L (3.5-5.1)
[2022-11-02 09:43] LABS: Basophils # 0.1 K/mm3 (0-0.2); Basophils % 0.9 % (0.1-2.0); Eosinophils # 0.2 K/mm3 (0.0-0.4); Eosinophils % 2.5 % (0.1-12.0); Hematocrit 49.2 % (42.0-52.0); Hemoglobin 16.3 g/dL (14.1-18.0); Lymphocytes # 1.8 K/mm3 (0.7-4.5); Lymphocytes % 18.5 % (10-50); Mean Corpuscular HGB Conc 33.1 g/dL (31.8-35.4); Mean Corpuscular Hemoglobin 33.8 pg (27.0-31.2); Mean Corpuscular Volume 102.2 fl (80-94); Monocytes # 0.5 K/mm3 (0.1-1.0); Monocytes % 5.3 % (1.7-9.3); Neutrophils # 6.9 K/mm3 (1.8-7.8); Neutrophils % 72.7 % (37.0-80.0); Platelet Count 217 K/mm3 (142-424); Red Blood Count 4.81 M/mm3 (4.60-6.20); Red Cell Distribution Width 12.8 % (11.5-17.5); White Blood Count 9.5 K/mm3 (4.8-10.8)
[2022-11-02 09:44] LABS: Alanine Aminotransferase 31 U/L (12-78); Alkaline Phosphatase 109 U/L (38-126); Anion Gap 10.5 mEq/L (5-15); Aspartate Amino Transferase 29 U/L (17-59); Bilirubin,Total 0.5 mg/dl (0.2-1.3); Blood Urea Nitrogen 13 mg/dl (9-20); Carbon Dioxide 28 mmol/L (22.0-30.0); Creatinine Clearance Estimated 168 mL/min (50-200); Estimated Glomerular Filt Rate 117 ml/min (>60); GFR (African American) 142 ML/MIN (>60)
[2022-11-02 09:45] LABS: Albumin Level 4.1 g/dl (3.5-5.0); Albumin/Globulin Ratio 1.3 (1.1-1.8); Calcium 8.5 mg/dl (8.4-10.2); Globulin 3.1 g/dL (1.3-3.2); Glucose 299 mg/dl (74-100); Lipase 160 U/L (23-300); Total Protein,Serum 7.2 g/dl (6.3-8.2)
--- NOTE | 2022-11-02 09:54 | ECG_ITS ---
APPROVED REPORT Exam: Resting ECG HR:61 bpm ECG Measurements Heart Rate 61 AXES UT 185 P 34 QRSd 79 QRS 54 QT 361 T 45 QTc 365 Conclusion SINUS RHYTHM LOW QRS VOLTAGE IN PRECORDIAL LEADS [QRS DEFLECTION < 1.0 mV IN CHEST LEADS] BORDERLINE ECG UNCONFIRMED REPORT Electronically signed by : Barry Otoole MD 11/02/2022 20:01:44
--- NOTE | 2022-11-02 09:57 | PC.NURSE ---
pt to Ct via wheelchair
--- NOTE | 2022-11-02 10:19 | PC.NURSE ---
Pt resting at this time. Pt updated on plan of care. No further complaints at this time.
--- NOTE | 2022-11-02 10:52 | PC.NURSE ---
rounded on pt at this time, pt resting in bed, call light within reach, pt states no needs at this time
--- NOTE | 2022-11-02 11:00 | PC.NURSE ---
Rounded on patient; call light within reach
[2022-11-02 11:01] VITALS: BP 143/79; PULSE 70; RESP 18; O2SAT 94
--- NOTE | 2022-11-02 11:04 | PC.NURSE ---
KALEE LEAL at discussing POC
[2022-11-02 11:26] VITALS: BP 146/89; PULSE 60; RESP 16; TEMP 36.7; O2SAT 96
== END 2022-11-02 11:26 | disposition home or self-care (01) ==
PROVIDERS: Emergency Provider Emergency Medicine
DX: N39.0 Urinary tract infection, site not specified (principal); R91.8 Other nonspecific abnormal finding of lung field; E11.9 Type 2 diabetes mellitus without complications; N31.9 Neuromuscular dysfunction of bladder, unspecified; K76.89 Other specified diseases of liver
CPT/HCPCS: 74177; 80053; 81001; 83690; 85025; 87086; 93005; 96374; 96375; 99284; 99285; J2405; Q9967

== ENCOUNTER 2022-11-24 17:47 | Emergency (ER) | payer BC, SELFPAY ==
--- NOTE | 2022-11-24 17:48 | ECG_ITS ---
APPROVED REPORT Exam: Resting ECG HR:85 bpm ECG Measurements Heart Rate 85 AXES HI 156 P 78 QRSd 112 QRS 41 QT 340 T 58 QTc 383 Conclusion SINUS RHYTHM Isolated nonsignificant q in iii BORDERLINE ECG UNCONFIRMED REPORT Electronically signed by : Barry Otoole MD 11/25/2022 19:51:48
[2022-11-24 17:57] VITALS: BP 160/93; PULSE 88; O2SAT 95
--- NOTE | 2022-11-24 17:59 | XR_ITS ---
PROCEDURE INFORMATION: Exam: XR Right Shoulder Exam date and time: 11/24/2022 6:07 PM Age: 57 years old Clinical indication: Injury or trauma; Fall; Additional info: Concern for dislocation TECHNIQUE: Imaging protocol: Radiologic exam of the right shoulder. Views: 2 or more views. COMPARISON: CR Chest 11/24/2022 6:04 PM FINDINGS: Bones/joints: There are moderate degenerative changes of the acromioclavicular joint. No visible fracture or dislocation. Soft tissues: Normal. IMPRESSION: No visible fracture or dislocation.
--- NOTE | 2022-11-24 17:59 | XR_ITS ---
PROCEDURE INFORMATION: Exam: XR Chest Exam date and time: 11/24/2022 6:04 PM Age: 57 years old Clinical indication: Chest wall pain; Additional info: Chest pain TECHNIQUE: Imaging protocol: Radiologic exam of the chest. Views: 2 views. COMPARISON: CR XR CHEST PORTABLE 11/25/2020 3:14 PM FINDINGS: Lungs: No evidence of pneumonia or interstitial edema. Pleural spaces: Unremarkable. No pleural effusion. No pneumothorax. Heart/Mediastinum: Unremarkable. No cardiomegaly. Bones/joints: Unremarkable. IMPRESSION: No evidence of pneumonia or interstitial edema.
[2022-11-24 18:00] VITALS: BP 160/95; PULSE 76; O2SAT 96
[2022-11-24 18:06] VITALS: BP 160/95; PULSE 83; RESP 16; TEMP 36.9; O2SAT 95; BMI 26.6
[2022-11-24 18:12] LABS: Chloride 102 mmol/L (98-107)
[2022-11-24 18:13] LABS: Sodium 137 mmol/L (136-145)
[2022-11-24 18:15] LABS: Alanine Aminotransferase 48 U/L (12-78); Alkaline Phosphatase 109 U/L (38-126); Aspartate Amino Transferase 41 U/L (17-59); Bilirubin,Total 0.6 mg/dl (0.2-1.3); Blood Urea Nitrogen 15 mg/dl (9-20); Creatinine Clearance Estimated 155 mL/min (50-200); Estimated Glomerular Filt Rate 117 ml/min (>60); GFR (African American) 142 ML/MIN (>60)
[2022-11-24 18:16] LABS: Albumin Level 4.7 g/dl (3.5-5.0); Albumin/Globulin Ratio 1.4 (1.1-1.8); Calcium 8.8 mg/dl (8.4-10.2); Carbon Dioxide 28 mmol/L (22.0-30.0); Globulin 3.4 g/dL (1.3-3.2); Glucose 143 mg/dl (74-100); Total Protein,Serum 8.1 g/dl (6.3-8.2)
[2022-11-24 18:17] LABS: Basophils # 0.1 K/mm3 (0-0.2); Basophils % 0.9 % (0.1-2.0); Eosinophils # 0.2 K/mm3 (0.0-0.4); Eosinophils % 1.4 % (0.1-12.0); Hematocrit 53.8 % (42.0-52.0); Hemoglobin 17.4 g/dL (14.1-18.0); Lymphocytes # 1.8 K/mm3 (0.7-4.5); Mean Corpuscular HGB Conc 32.4 g/dL (31.8-35.4); Mean Platelet Volume 7.8 fl (7.4-10.4); Monocytes # 0.8 K/mm3 (0.1-1.0); Monocytes % 6.3 % (1.7-9.3); Neutrophils # 9.2 K/mm3 (1.8-7.8); Neutrophils % 76.4 % (37.0-80.0); Platelet Count 216 K/mm3 (142-424); Red Blood Count 5.28 M/mm3 (4.60-6.20); Red Cell Distribution Width 13.1 % (11.5-17.5); White Blood Count 12.1 K/mm3 (4.8-10.8)
--- NOTE | 2022-11-24 18:23 | PC.NURSE ---
pt arrived back to room from xray
[2022-11-24 18:30] VITALS: BP 152/87; PULSE 76
[2022-11-24 18:39] LABS: Troponin I < 0.01 ng/ml (0.00-0.034)
--- NOTE | 2022-11-24 18:54 | HMH.EDCP ---
Discharge Plan Disposition Patient Disposition: Home, Self-Care Condition: Fair Prescriptions Prescriptions: New methocarbamol [Methocarbamol] 750 mg tablet 750 mg PO Q6 PRN (Reason: Muscle Spasm) Qty: 30 0RF No Action cefdinir 300 MG capsule 300 mg PO BID Qty: 10 0RF lisinopril 40 MG tablet 20 mg PO DAILY pregabalin 100 MG capsule 100 mg PO TID insulin lispro 100 UNIT/ML insulin pen 0 - 12 unit SQ TIDWM insulin glargine 100 UNIT/ML insulin pen 20 unit SQ DAILY levofloxacin 500 MG tablet 500 mg PO DAILY Qty: 7 0RF ondansetron HCl 4 mg tablet 4 mg PO DAILY PRN (Reason: nausea and vomiting) Qty: 7 0RF cephalexin 500 mg capsule 500 mg PO Q6H 7 Days Qty: 28 0RF Referrals Follow up/Referrals: Dale Tripathi JR, MD [Physician] - See instructions Provider,MD Iftikhar [Referring] - See instructions Clinical Impressions Clinical Impression: Injury of right rotator cuff Stand Alone Forms Stand Alone Forms: Work/School Release Instructions Patient Instructions: DI for Rotator Cuff Injury Discharge ED Provider: Gregorio Trent Chest Pain HPI General Chief Complaint: Extremity Injury, Upper Stated Complaint: Shoulder pain, fall Time Seen by Provider: 11/24/22 18:00 Mode of Arrival: Ambulatory Source of Information: Patient Limitations: No Limitations Description of Symptoms (Recalled from ER Triage Doc. by RN): pt presents to ED for fall and chest pain this am. pt c/o right shoulder, knee. pt states that he felt chest pain after he fell. pt states that he tripped over a cord while playing with his dog. History of Present Illness HPI narrative: Patient is a 57-year-old male with past medical history of diabetes, tobacco use who presents with concern for fall. He says that he tripped over a cord while he was playing with his dog. He says he fell on outstretched right arm. He said he started to get some chest pain afterwards. No loss consciousness. Denies any numbness or tingling into his extremities. He says right arm is very painful with movement. He says his chest pain has resolved. Denies any nausea. Related Data Home Medications Medication Instructions Recorded Confirmed insulin glargine 100 unit/mL (3 20 unit SQ DAILY Diabetes 05/18/20 05/18/20 mL) subcutaneous pen insulin lispro 100 unit/mL 0 - 12 unit SQ TIDWM Diabetes 05/18/20 05/18/20 subcutaneous pen lisinopril 40 mg tablet 20 mg PO DAILY Hypertension 05/18/20 05/18/20 pregabalin 100 mg capsule 100 mg PO TID Pain 05/18/20 05/18/20 Previous Rx's Medication Instructions Recorded levofloxacin 500 mg tablet 500 mg PO DAILY #7 tabs 05/19/20 cefdinir 300 mg capsule 300 mg PO BID #10 caps 11/25/20 cephalexin 500 mg capsule 500 mg PO Q6H UTI 7 days #28 caps 11/02/22 ondansetron HCl 4 mg tablet 4 mg PO DAILY PRN nausea and 11/02/22 vomiting #7 tabs methocarbamol 750 mg tablet 750 mg PO Q6 PRN Muscle Spasm #30 11/24/22 tabs Allergies Allergy/AdvReac Type Severity Reaction Status Date / Time amoxicillin Allergy Verified 11/24/22 18:11 [facility] Disclaimer: The information contained in this section may have been updated after the patient was seen, as this information can be updated by other users. Social History Smoking Status: Current every day smoker tobacco type: cigarettes packs per day: 1 alcohol intake: never substance use type: marijuana current occupational status: unemployed Travel in the last 8 weeks: None household members: family housing: homeless ROS Obtained: Yes All systems reviewed & no additional complaints except as documented Physical Exam General General appearance: alert and in no apparent distress Head Head exam: atraumatic, normocephalic and normal inspection Eye Eye exam: Present normal appearance and PERRL ENT ENT exam: Present normal exam, mucous membranes moist and normal external ear exam Neck Neck exam: Presen
[2022-11-24 19:25] VITALS: BP 138/73; PULSE 93; RESP 16; TEMP 36.6
== END 2022-11-24 19:26 | disposition home or self-care (01) ==
PROVIDERS: Emergency Provider Student in an Organized Health Care Education/Training Program; PCP Student in an Organized Health Care Education/Training Program
DX: R07.9 Chest pain, unspecified (principal); M25.511 Pain in right shoulder; W01.0XXA Fall on same level from slipping, tripping and stumbling without subsequent striking against object, initial encounter
CPT/HCPCS: 71046; 73030; 80053; 84484; 85025; 93005; 96374; 96375; 99285; J2405

== ENCOUNTER → 2022-12-04 09:56 | Outpatient (CLI) | payer BC, SELFPAY ==
--- NOTE | 2022-12-04 10:10 | MR_ITS ---
FINAL REPORT CLINICAL HISTORY: rotator cuff tear, RIGHT SHOULDER PAIN, LIMITED ROM COMPARISON: None FINDINGS: Multiplanar MR imaging of the right shoulder was performed without contrast. There are complete tears of the distal supraspinatus and infraspinatus tendons. The tendons are retracted to the level of medial humeral head. There is no significant muscle atrophy. There is moderate AC joint arthrosis. There is a small amount of fluid in the bursa and glenohumeral joint. There is irregularity of the posterior labrum, posterior labral tear cannot be excluded. The long head of the biceps tendon is intact. No significant glenohumeral joint effusion is seen. There is no evidence of fracture or dislocation. The musculature is intact. There is no evidence of soft tissue mass. IMPRESSION: Complete tears of the distal supraspinatus and infraspinatus tendons with tendon retraction to the level of the medial humeral head. Posterior labral irregularity, tear cannot be excluded. Reviewed, Interpreted and Dictated by Martín Osuna III, MD Transcribed by Elizabeth Donaldson Authenticated and [facility]
== END ==
PROVIDERS: PCP Student in an Organized Health Care Education/Training Program; Visit Provider Orthopaedic Surgery
DX: M25.511 Pain in right shoulder (principal); S46.001A Unspecified injury of muscle(s) and tendon(s) of the rotator cuff of right shoulder, initial encounter
CPT/HCPCS: 73221

== ENCOUNTER 2022-12-04 11:37 | Emergency (ER) | payer BC, SELFPAY ==
--- NOTE | 2022-12-04 12:01 | EXP.UTC ---
Discharge Plan Disposition Patient Disposition: Home, Self-Care Condition: Good Prescriptions Prescriptions: New ciprofloxacin HCl [Cipro] 500 mg tablet 500 mg PO BID 14 Days Qty: 28 0RF No Action cefdinir 300 MG capsule 300 mg PO BID Qty: 10 0RF methocarbamol [Methocarbamol] 750 mg tablet 750 mg PO Q6 PRN (Reason: Muscle Spasm) Qty: 30 0RF lisinopril 40 MG tablet 20 mg PO DAILY pregabalin 100 MG capsule 100 mg PO TID insulin lispro 100 UNIT/ML insulin pen 0 - 12 unit SQ TIDWM insulin glargine 100 UNIT/ML insulin pen 20 unit SQ DAILY levofloxacin 500 MG tablet 500 mg PO DAILY Qty: 7 0RF ondansetron HCl 4 mg tablet 4 mg PO DAILY PRN (Reason: nausea and vomiting) Qty: 7 0RF cephalexin 500 mg capsule 500 mg PO Q6H 7 Days Qty: 28 0RF Referrals Follow up/Referrals: Provider,Referral, MD [Primary Care Provider] - See instructions Activity Restrictions/Add. Instructions Additional Instructions/Restrictions: Drink plenty of fluids. Take tylenol or ibuprofen for pain or fever. Take the medications as directed. Follow up with your regular doctor. GO TO THE ER FOR ANY WORSENING SYMPTOMS We will culture the urine. That will tell what bacteria is causing your infection and which antibiotics will treat it best. Sometimes the first antibiotic we prescribe turns out to not work against different bacteria. So, make sure you follow up within 3 days if you are not getting better. Clinical Impressions Clinical Impression: Urinary tract infection Stand Alone Forms Stand Alone Forms: Work/School Release Instructions Patient Instructions: Urinary Tract Infection, Urine Culture, DI for Urinary Tract Infection (UTI), Ceftriaxone Injection, Ciprofloxacin Discharge ED Provider: John Cornelius [facility] General Stated complaint: Possible UTI Time Seen by Provider: 12/04/22 12:01 History of Present Illness Provider Complaint: He states that for the past 2 days he has had foul smelling urine, burning with urination, and low back pain. He has a history of neurogenic bladder that he has to self cath at time for. He does get uti's occasionally from that. Related Data Home Medications Medication Instructions Recorded Confirmed insulin glargine 100 unit/mL (3 20 unit SQ DAILY Diabetes 05/18/20 11/29/22 mL) subcutaneous pen insulin lispro 100 unit/mL 0 - 12 unit SQ TIDWM Diabetes 05/18/20 11/29/22 subcutaneous pen lisinopril 40 mg tablet 20 mg PO DAILY Hypertension 05/18/20 11/29/22 pregabalin 100 mg capsule 100 mg PO TID Pain 05/18/20 11/29/22 Previous Rx's Medication Instructions Recorded levofloxacin 500 mg tablet 500 mg PO DAILY #7 tabs 05/19/20 cefdinir 300 mg capsule 300 mg PO BID #10 caps 11/25/20 cephalexin 500 mg capsule 500 mg PO Q6H UTI 7 days #28 caps 11/02/22 ondansetron HCl 4 mg tablet 4 mg PO DAILY PRN nausea and 11/02/22 vomiting #7 tabs methocarbamol 750 mg tablet 750 mg PO Q6 PRN Muscle Spasm #30 11/24/22 tabs ciprofloxacin HCl 500 mg tablet 500 mg PO BID 14 days #28 tabs 12/04/22 (Cipro) Allergies Allergy/AdvReac Type Severity Reaction Status Date / Time amoxicillin Allergy Verified 11/29/22 15:26 [facility] Disclaimer: The information contained in this section may have been updated after the patient was seen, as this information can be updated by other users. Social History Smoking Status: Current every day smoker tobacco type: cigarettes packs per day: 1 alcohol intake: never substance use type: marijuana current occupational status: unemployed Travel in the last 8 weeks: None household members: family housing: homeless ROS Obtained: Yes All systems reviewed & no additional complaints except as documented Constitutional Constitutional: Denies chills and Denies fever(s) Eyes Eyes: Denies eye discharge ENT Ears, Nose, Mouth, a
[2022-12-04 12:20] VITALS: BP 162/88; PULSE 74; RESP 19; TEMP 36.6; O2SAT 96; BMI 27.6
[2022-12-04 12:43] VITALS: BP 162/88; PULSE 74; RESP 19; TEMP 36.6; O2SAT 96
[2022-12-04 12:46] LABS: Apearance,Urine Cloudy (Clear); Blood, Urine Trace (Negative); Color,Urine Yellow (Yellow); Glucose,Urine (UA) >=1000 (Negative); Ketones,Urine Negative (Negative); Protein,Urine 1+ (Negative); Specific Gravity, Urine 1.015 (1.005-1.030)
[2022-12-04 12:47] LABS: Bilirubin,Urine Negative (Negative); UTC Leukocyte Esterase,Urine Trace (Negative); UTC Nitrate,Urine Negative (Negative); Urobilinogen,Urine 0.2 EU/dl (0.2)
== END 2022-12-04 12:56 | disposition home or self-care (01) ==
PROVIDERS: Emergency Provider Nurse Practitioner Family
DX: N39.0 Urinary tract infection, site not specified (principal); E11.9 Type 2 diabetes mellitus without complications; I10 Essential (primary) hypertension; Z79.4 Long term (current) use of insulin
CPT/HCPCS: 81003; 87086; 96372; 99212; 99214; G0463; J0696

== ENCOUNTER 2022-12-06 17:22 | Emergency (ER) | payer BC, SELFPAY ==
[2022-12-06 17:29] VITALS: BP 166/99; PULSE 90; RESP 18; TEMP 36.6; O2SAT 98; BMI 27.1
--- NOTE | 2022-12-06 17:35 | CT_ITS ---
PROCEDURE INFORMATION: Exam: CT Abdomen And Pelvis With Contrast Exam date and time: 12/06/2022 6:21 PM Age: 57 years old Clinical indication: Abdominal pain; Left; Prior surgery; Surgery date: 6+ months; Surgery type: Inguinal hernia repair, lithotripsy; Patient HX: Lt flank pain w nausea, hematuria x days. HX renal stones; Additional info: Luq/l flank pain TECHNIQUE: Imaging protocol: Computed tomography of the abdomen and pelvis with contrast. Radiation optimization: All CT scans at this facility use at least one of these dose optimization techniques: automated exposure control; mA and/or kV adjustment per patient size (includes targeted exams where dose is matched to clinical indication); or iterative reconstruction. Contrast material: ISOVUE; Contrast volume: 70 ml; Contrast route: IV; REPORTING DATA: Count of CT and Cardiac NM exams in prior 12 months: This patient has received [address] and 0 known cardiac nuclear medicine studies in the 12 months prior to the current study. COMPARISON: CT ABDOMEN PELVIS W CON 11/02/2022 10:03 AM FINDINGS: Lungs: No acute findings in the visualized lower lungs. Mild dependent atelectasis. No consolidation. A chronic 8 mm left lingular nodule series 3, image 4, unchanged compared with series 3, image 1 of the prior exam from 11/02/2022. Coronary arteries: Multiple coronary artery calcifications. Liver: A chronic 2.2 cm simple cystic lesion in the lateral segment of left lobe of liver series 3, image 23. No hepatomegaly. Gallbladder and bile ducts: The gallbladder is unremarkable. No calcified stones or biliary dilatation. Pancreas: The pancreas is normal. Spleen: Mild splenomegaly, approximate 14.8 cm long axis coronal series 1001, image 43. Calcified splenic granuloma. Adrenal glands: 2 cm right adrenal nodule with indeterminate enhanced HU density of 52. No interval enlargement. This was reported stable compared with the previous CT of 05/18/2020. Per ACR guidelines, for indeterminate density nodules which are stable for 1 year or greater, no follow-up is necessary. [facility] . The left adrenal appears normal. Kidneys and ureters: Scattered chronic areas of left renal cortical scarring. Nonobstructing posterior left renal calculus series 3, image 40. No hydronephrosis, hydroureter or calcified obstructing ureteral stones. No mass. Stomach and bowel: The stomach is normal. There is no evidence of intestinal perforation or obstruction. Minimal diverticulosis coli, no CT findings of acute diverticulitis. Appendix: A normal appendix is identified. Intraperitoneal space: There is no free intraperitoneal air. There is no significant free intraperitoneal fluid. Vasculature: There is no aortic aneurysm.The vasculature demonstrates scattered mild atherosclerotic calcification. Lymph nodes: No significantly enlarged lymph nodes by short axis criteria. Urinary bladder: Urinary bladder wall thickening appears increased compared with the prior exam, concerning for cystitis, versus bladder hypertrophy. Slight mural hyperenhancement anteriorly toward the right series 1001, image 30 and series 3 images 100-101, but no discrete nodule is seen. The bladder lumen is not well enhanced on this dynamic phase exam. No calcified stones. Reproductive: No prostate enlargement. Multiple prostate calcifications. Seminal vesicles are unremarkable. Bones/joints: There are spinal degenerative changes, with multilevel disc narrrowing and spondylosis. Mild chronic appearing anterior wedge deformities in the lower thoracic spine. No acute appearing fracture or high-grade listhesis, as visualized. Lumba
--- NOTE | 2022-12-06 17:39 | HMH.EDGENADL ---
Discharge Plan Disposition Patient Disposition: Home, Self-Care Condition: Good Prescriptions Prescriptions: New ciprofloxacin HCl 500 mg tablet 500 mg PO BID Qty: 14 0RF No Action cefdinir 300 MG capsule 300 mg PO BID Qty: 10 0RF methocarbamol [Methocarbamol] 750 mg tablet 750 mg PO Q6 PRN (Reason: Muscle Spasm) Qty: 30 0RF lisinopril 40 MG tablet 20 mg PO DAILY pregabalin 100 MG capsule 100 mg PO TID insulin lispro 100 UNIT/ML insulin pen 0 - 12 unit SQ TIDWM insulin glargine 100 UNIT/ML insulin pen 20 unit SQ DAILY levofloxacin 500 MG tablet 500 mg PO DAILY Qty: 7 0RF ondansetron HCl 4 mg tablet 4 mg PO DAILY PRN (Reason: nausea and vomiting) Qty: 7 0RF cephalexin 500 mg capsule 500 mg PO Q6H 7 Days Qty: 28 0RF ciprofloxacin HCl [Cipro] 500 mg tablet 500 mg PO BID 14 Days Qty: 28 0RF Referrals Follow up/Referrals: Diana Zapata DO [Primary Care Provider] - See instructions Activity Restrictions/Add. Instructions Additional Instructions/Restrictions: At this time was felt you are safe to be discharged from the emergency department. If new or worsening symptoms please do not hesitate to return for continued evaluation. Please take your medications as prescribed. If symptoms persist please follow-up with your family doctor within 1 week. Clinical Impressions Clinical Impression: Cystitis Instructions Patient Instructions: Urinary Tract Infection Discharge ED Provider: Tripp Mckeon General Adult HPI General Chief complaint: Abdominal Pain Stated complaint: Pain Left side and stomach Time Seen by Provider: 12/06/22 17:30 Mode of Arrival: Ambulatory Source of Information: Patient Limitations: No Limitations Description of Symptoms (Recalled from ER Triage Doc. by RN): Presents via POV d/t worsening left flank pain radiating to left abd. Recently placed on abx for UTI. +dysuria History of Present Illness HPI narrative: Patient is a 57-year-old male with past medical history of insulin-dependent diabetes, hypertension, previous hernia repair with mesh who presents to the emergency department for evaluation of left flank and left upper quadrant abdominal pain. Onset was acute, over the last 48 hours. Patient has had worsening left upper quadrant pain, worsened with movement, associated nausea, no vomiting, last bowel movement today (nonbloody), still passing flatus. Patient has associated dysuria. No other acute complaints at this time Related Data Home Medications Medication Instructions Recorded Confirmed insulin glargine 100 unit/mL (3 20 unit SQ DAILY Diabetes 05/18/20 12/06/22 mL) subcutaneous pen insulin lispro 100 unit/mL 0 - 12 unit SQ TIDWM Diabetes 05/18/20 12/06/22 subcutaneous pen lisinopril 40 mg tablet 20 mg PO DAILY Hypertension 05/18/20 12/06/22 pregabalin 100 mg capsule 100 mg PO TID Pain 05/18/20 12/06/22 Previous Rx's Medication Instructions Recorded levofloxacin 500 mg tablet 500 mg PO DAILY #7 tabs 05/19/20 cefdinir 300 mg capsule 300 mg PO BID #10 caps 11/25/20 cephalexin 500 mg capsule 500 mg PO Q6H UTI 7 days #28 caps 11/02/22 ondansetron HCl 4 mg tablet 4 mg PO DAILY PRN nausea and 11/02/22 vomiting #7 tabs methocarbamol 750 mg tablet 750 mg PO Q6 PRN Muscle Spasm #30 11/24/22 tabs ciprofloxacin HCl 500 mg tablet 500 mg PO BID 14 days #28 tabs 12/04/22 (Cipro) ciprofloxacin HCl 500 mg tablet 500 mg PO BID Cystitis #14 tabs 12/06/22 Allergies Allergy/AdvReac Type Severity Reaction Status Date / Time amoxicillin Allergy Verified 12/06/22 12:46 [facility] Disclaimer: The information contained in this section may have been updated after the patient was seen, as this information can be updated by other users. Social History Smoking Status: Current every day smoker tobacco type: cigarettes packs per day: 1 alcohol intake: n
[2022-12-06 17:50] LABS: Basophils # 0.1 K/mm3 (0-0.2); Basophils % 0.6 % (0.1-2.0); Eosinophils # 0.3 K/mm3 (0.0-0.4); Eosinophils % 2.5 % (0.1-12.0); Hematocrit 51.3 % (42.0-52.0); Hemoglobin 17.1 g/dL (14.1-18.0); Lymphocytes # 2.8 K/mm3 (0.7-4.5); Lymphocytes % 24.2 % (10-50); Mean Corpuscular HGB Conc 33.3 g/dL (31.8-35.4); Mean Corpuscular Hemoglobin 33.1 pg (27.0-31.2); Mean Corpuscular Volume 99.5 fl (80-94); Mean Platelet Volume 7.9 fl (7.4-10.4); Monocytes # 0.8 K/mm3 (0.1-1.0); Monocytes % 6.8 % (1.7-9.3); Neutrophils # 7.5 K/mm3 (1.8-7.8); Neutrophils % 65.7 % (37.0-80.0); Platelet Count 244 K/mm3 (142-424); Red Blood Count 5.16 M/mm3 (4.60-6.20); Red Cell Distribution Width 12.8 % (11.5-17.5); White Blood Count 11.5 K/mm3 (4.8-10.8)
[2022-12-06 17:51] LABS: Chloride 101 mmol/L (98-107); Sodium 138 mmol/L (136-145)
[2022-12-06 17:52] LABS: Potassium 4.2 mmoL/L (3.5-5.1)
[2022-12-06 17:54] LABS: Alanine Aminotransferase 27 U/L (12-78); Albumin Level 4.5 g/dl (3.5-5.0); Albumin/Globulin Ratio 1.2 (1.1-1.8); Alkaline Phosphatase 170 U/L (38-126); Anion Gap 16.2 mEq/L (5-15); Aspartate Amino Transferase 27 U/L (17-59); Bilirubin,Total 0.5 mg/dl (0.2-1.3); Blood Urea Nitrogen 14 mg/dl (9-20); Carbon Dioxide 25 mmol/L (22.0-30.0); Creatinine Clearance Estimated 184 mL/min (50-200); Estimated Glomerular Filt Rate 140 ml/min (>60); GFR (African American) 169 ML/MIN (>60); Globulin 3.9 g/dL (1.3-3.2); Total Protein,Serum 8.4 g/dl (6.3-8.2)
[2022-12-06 17:55] LABS: Calcium 8.9 mg/dl (8.4-10.2); Glucose 291 mg/dl (74-100); Lipase 283 U/L (23-300)
[2022-12-06 18:00] VITALS: BP 160/95; PULSE 86; O2SAT 96
[2022-12-06 18:11] LABS: Microscopic, Urine URINE MICROSCOPIC (MICROSCOPIC)
[2022-12-06 18:13] LABS: Appearance,Urine CLEAR (Clear); Bilirubin,Urine Negative (Negative); Blood, Urine 1+ (Negative); Color,Urine YELLOW (Yellow); Glucose,Urine (UA) 3+ (Negative); Ketones,Urine Negative (Negative); Leukocyte Esterase,Urine Negative (Negative); Nitrate,Urine Negative (Negative); PH,Urine 5.5 (5.0-8.5); Protein,Urine 2+ (Negative); Specific Gravity, Urine >= 1.030 (1.005-1.030); Urobilinogen,Urine 0.2 EU/dl (0.2)
--- NOTE | 2022-12-06 18:17 | PC.NURSE ---
Warm blanket provided. Pt to CT.
[2022-12-06 18:29] LABS: Bacteria,Urine Trace /lpf
[2022-12-06 18:30] VITALS: BP 156/93; PULSE 82; O2SAT 96
[2022-12-06 18:33] LABS: Lactic Acid 0.9 mmol/L (0.7-2.1)
[2022-12-06 19:33] VITALS: BP 147/87; PULSE 80; RESP 18; TEMP 36.6; O2SAT 98
== END 2022-12-06 19:35 | disposition home or self-care (01) ==
PROVIDERS: Emergency Provider Emergency Medicine; PCP Student in an Organized Health Care Education/Training Program
DX: N30.90 Cystitis, unspecified without hematuria (principal); R10.12 Left upper quadrant pain; F17.210 Nicotine dependence, cigarettes, uncomplicated
CPT/HCPCS: 74177; 80053; 81001; 83605; 83690; 85025; 87086; 96360; 96374; 96375; 99285; J2405; Q9967

== ENCOUNTER 2023-01-11 09:58 | Emergency (ER) | payer BC, SELFPAY ==
[2023-01-11 10:00] VITALS: BP 181/94; PULSE 92; RESP 14; TEMP 37; O2SAT 96; BMI 28.5
--- NOTE | 2023-01-11 10:27 | XR_ITS ---
PROCEDURE INFORMATION: Exam: XR Right Hand Exam date and time: 01/11/2023 10:30 AM Age: 57 years old Clinical indication: Pain; Hand; Right TECHNIQUE: Imaging protocol: Radiologic exam of the right hand. Views: 3 or more views. COMPARISON: No relevant prior studies available. FINDINGS: Bones/joints: Mild degenerative changes involving the radiocarpal articulation as well as the distal ulna. Soft tissues: Normal. IMPRESSION: No evidence of acute osseous injury.
--- NOTE | 2023-01-11 10:30 | HMH.EDGENADL ---
Discharge Plan Disposition Patient Disposition: Home, Self-Care Condition: Good Chief Complaint: PAIN Prescriptions Prescriptions: No Action oxycodone 5 mg tablet 5 mg PO Q8H PRN (Reason: pain) Qty: 30 0RF cefdinir 300 MG capsule 300 mg PO BID Qty: 10 0RF methocarbamol [Methocarbamol] 750 mg tablet 750 mg PO Q6 PRN (Reason: Muscle Spasm) Qty: 30 0RF ciprofloxacin HCl 500 mg tablet 500 mg PO BID Qty: 14 0RF lisinopril 40 MG tablet 20 mg PO DAILY pregabalin 100 MG capsule 100 mg PO TID insulin lispro 100 UNIT/ML insulin pen 0 - 12 unit SQ TIDWM insulin glargine 100 UNIT/ML insulin pen 20 unit SQ DAILY levofloxacin 500 MG tablet 500 mg PO DAILY Qty: 7 0RF ondansetron HCl 4 mg tablet 4 mg PO DAILY PRN (Reason: nausea and vomiting) Qty: 7 0RF cephalexin 500 mg capsule 500 mg PO Q6H 7 Days Qty: 28 0RF ciprofloxacin HCl [Cipro] 500 mg tablet 500 mg PO BID 14 Days Qty: 28 0RF Referrals Follow up/Referrals: Diana Zapata DO [Primary Care Provider] - See instructions Clinical Impressions Clinical Impression: Post-operative pain Instructions Patient Instructions: DI for Acute Pain -- Adult Discharge ED Provider: Adryan Vincent Adult [facility] General Chief complaint: PAIN Stated complaint: Post op 01/09 R hand hurts to breath on Time Seen by Provider: 01/11/23 10:13 Mode of Arrival: Ambulatory Source of Information: Patient Limitations: No Limitations Description of Symptoms (Recalled from ER Triage Doc. by RN): Patient presents to ED with complaints of right shoulder pain secondary to rotator cuff surgery on 01/09. Upon assessment of patient's arrival patient was not wearing his shoudler sling. Patient further reports he completed dressing change this morning ; scheduled FU x 2 weeks. Rx'd Oxycodone (last dose 0600) History of Present Illness HPI narrative: 57yo M presents the ER complaining of shoulder pain and right hand pain. Underwent rotator cuff surgery 2 days ago in [place]. Patient believes he may have injured his hand but states he was on pain medication and does not remember everything that happened. Related Data Home Medications Medication Instructions Recorded Confirmed insulin glargine 100 unit/mL (3 20 unit SQ DAILY Diabetes 05/18/20 12/06/22 mL) subcutaneous pen insulin lispro 100 unit/mL 0 - 12 unit SQ TIDWM Diabetes 05/18/20 12/06/22 subcutaneous pen lisinopril 40 mg tablet 20 mg PO DAILY Hypertension 05/18/20 12/06/22 pregabalin 100 mg capsule 100 mg PO TID Pain 05/18/20 12/06/22 Previous Rx's Medication Instructions Recorded levofloxacin 500 mg tablet 500 mg PO DAILY #7 tabs 05/19/20 cefdinir 300 mg capsule 300 mg PO BID #10 caps 11/25/20 cephalexin 500 mg capsule 500 mg PO Q6H UTI 7 days #28 caps 11/02/22 ondansetron HCl 4 mg tablet 4 mg PO DAILY PRN nausea and 11/02/22 vomiting #7 tabs methocarbamol 750 mg tablet 750 mg PO Q6 PRN Muscle Spasm #30 11/24/22 tabs ciprofloxacin HCl 500 mg tablet 500 mg PO BID 14 days #28 tabs 12/04/22 (Cipro) ciprofloxacin HCl 500 mg tablet 500 mg PO BID Cystitis #14 tabs 12/06/22 oxycodone 5 mg tablet 5 mg PO Q8H PRN pain #30 tabs 12/13/22 Allergies Allergy/AdvReac Type Severity Reaction Status Date / Time amoxicillin Allergy Verified 12/06/22 12:46 [facility] PFSH Disclaimer: The information contained in this section may have been updated after the patient was seen, as this information can be updated by other users. Social History Smoking Status: Current every day smoker tobacco type: cigarettes packs per day: 1 alcohol intake: never substance use type: marijuana current occupational status: unemployed Travel in the last 8 weeks: None household members: family housing: homeless ROS Obtained: Yes Systems reviewed as appropriate & no additional complaints except as documented Physical
--- NOTE | 2023-01-11 10:34 | PC.NURSE ---
Radiology @ [facility] for x-ray
--- NOTE | 2023-01-11 11:02 | PC.NURSE ---
Original dressing removed from right shoulder surgical site; wound edges approximated steri strips in place no drainage noted. New dry dressing applied patient tolerated well. Right upper extremity placed in shoulder sling patient tolerated well. +PMS
[2023-01-11 11:06] VITALS: BP 158/82; PULSE 82; RESP 12; TEMP 37
== END 2023-01-11 11:06 | disposition home or self-care (01) ==
PROVIDERS: Emergency Provider Family Medicine; PCP Student in an Organized Health Care Education/Training Program
DX: M79.641 Pain in right hand; M25.511 Pain in right shoulder; G89.18 Other acute postprocedural pain; F17.210 Nicotine dependence, cigarettes, uncomplicated
CPT/HCPCS: 73130; 99283

== ENCOUNTER 2023-02-20 05:06 | Emergency (ER) | payer BC, SELFPAY ==
[2023-02-20] VITALS (9 sets, daily range): BP systolic 144–180; BP diastolic 88–109; PULSE 69–107; RESP 20; TEMP 36.8; O2SAT 94–98; BMI 28.6; BMI 29.4
--- NOTE | 2023-02-20 05:10 | ECG_ITS ---
APPROVED REPORT Exam: Resting ECG HR:82 bpm ECG Measurements Heart Rate 82 AXES VT 167 P 35 QRSd 93 QRS 40 QT 328 T 56 QTc 367 Conclusion SINUS RHYTHM Poor R wave progression ABNORMAL ECG UNCONFIRMED REPORT Electronically signed by : Barry Otoole MD 02/20/2023 22:21:43
--- NOTE | 2023-02-20 06:45 | PC.NURSE ---
Dr. Ware at
--- NOTE | 2023-02-20 06:52 | CT_ITS ---
FINAL REPORT CLINICAL HISTORY: Epigastric pain COMPARISON: 12/06/2022 FINDINGS: CT OF THE ABDOMEN AND PELVIS WITH CONTRAST Axial CT images of the abdomen and pelvis were obtained after the administration of iv contrast. Coronal reformatted images were also obtained and reviewed.This study was performed with techniques to keep radiation doses as low as reasonably achievable (ALARA). Individualized dose reduction techniques using automated exposure control or adjustment of mA and/or kV according to the patient's size were employed. Abdomen: There is mild bibasilar atelectasis. There is a nodule in the inferior lingula measuring 8 mm. This is stable as compared to the prior exam. The heart is normal in size. There is a stable cyst in the left hepatic lobe. The spleen is unremarkable. A stable nodule in the right adrenal gland measures 19 mm and is favored to represent an adenoma. The pancreas has an unremarkable appearance. There is mild left renal scarring. There is a less than 3 mm nonobstructing left renal stone. There is a probable left calyceal diverticulum The aorta is normal in caliber. There is no free fluid or adenopathy. No mass or abnormal fluid collection is seen. Pelvis: The appendix is normal. There is diffuse urinary bladder wall thickening which is likely inflammatory. There is no evidence of mass or adenopathy. There is no evidence of bowel obstruction. IMPRESSION: Stable, 8 mm nodule in the inferior lingula. Follow-up CT in 6-12 months is recommended. Urinary bladder wall thickening is likely inflammatory. Other stable findings. Reviewed, Interpreted and Dictated by Martín Osuna III, MD Transcribed by Pura Marie Authenticated and [facility]
--- NOTE | 2023-02-20 06:52 | XR_ITS ---
FINAL REPORT CLINICAL HISTORY: Precordial chest pain FINDINGS: Two views of the chest were obtained. The heart size and pulmonary vascularity are within normal limits. The mediastinum is normal. No acute pulmonary abnormality is identified. There is no pneumothorax. The bony thorax is intact. IMPRESSION: No active cardiopulmonary disease. Reviewed, Interpreted and Dictated by Martín Osuna III, MD Transcribed by Pura Marie Authenticated and [facility]
--- NOTE | 2023-02-20 06:57 | HMH.EDCP ---
Discharge Plan Disposition Patient Disposition: Still a Patient Chief Complaint: Chest Pain Prescriptions Prescriptions: No Action gabapentin 600 mg tablet 600 mg PO DAILY trazodone 50 mg tablet 50 mg PO DAILY hydrocodone-acetaminophen 5-325 mg tablet 1 tab PO NEEDED PRN (Reason: Pain) Patient Comments: TAKE 1 TABLET ORALLY EVERY 4 HOURS NEEDED FOR PAIN meloxicam 15 mg tablet 15 mg PO DAILY Patient Comments: TAKE 1 TABLET BY MOUTH EVERY DAY amlodipine 5 mg tablet 5 mg PO DAILY Patient Comments: TAKE 1 TABLET BY MOUTH EVERY DAY duloxetine 60 mg capsule,delayed release(DR/EC) 60 mg PO DAILY Patient Comments: TAKE 1 CAPSULE BY MOUTH EVERY DAY lisinopril 40 MG tablet 20 mg PO DAILY pregabalin 100 MG capsule 100 mg PO TID insulin lispro 100 UNIT/ML insulin pen 0 - 12 unit SQ TIDWM insulin glargine 100 UNIT/ML insulin pen 20 unit SQ DAILY Referrals Follow up/Referrals: Diana Zapata DO [Primary Care Provider] - See instructions Clinical Impressions Clinical Impression: Urinary tract infection, Atypical chest pain Discharge ED Provider: Jeanie (ED)Raymundo Chest Pain HPI General Chief Complaint: Chest Pain Stated Complaint: Chest Pain Time Seen by Provider: 02/20/23 05:10 Mode of Arrival: Ambulatory Source of Information: Patient and Medical Record Limitations: No Limitations Description of Symptoms (Recalled from ER Triage Doc. by RN): Pt states he woke up at 0300 with chest pain which radiates into his abdomen. History of Present Illness HPI narrative: pt with lt sided chest pain and has also lt sided abd pain - pt with hx of uti sx - MD complaint: chest pain indicative of cardiac Onset (ago): hour(s) Duration: intermittent Activity at onset: during rest Pain location: left chest Severity: moderate Quality: sharp Risk Factors for CAD: Family Hx of CAD and Diabetes Treatments prior to or on arrival for Cardiac Chest Pain: none RAKESH Score for Non-Stemi Age of Patient: 50-59 years old Heart Rate: 70-89 bpm Systolic Blood Pressure: 140-159 mmHg Serum Creatinine: 0.40-0.79 mg/dl CHF [place] Class: I-No CHF Other Risk Factors: None Non-Stemi Risk Score: 78 Risk Stratification: 1-108 = Low Risk Related Data Home Medications Medication Instructions Recorded Confirmed insulin glargine 100 unit/mL (3 20 unit SQ DAILY Diabetes 05/18/20 02/20/23 mL) subcutaneous pen insulin lispro 100 unit/mL 0 - 12 unit SQ TIDWM Diabetes 05/18/20 02/20/23 subcutaneous pen lisinopril 40 mg tablet 20 mg PO DAILY Hypertension 05/18/20 02/20/23 pregabalin 100 mg capsule 100 mg PO TID Pain 05/18/20 02/20/23 amlodipine 5 mg tablet 5 mg PO DAILY per pcp 02/20/23 02/20/23 duloxetine 60 mg capsule,delayed 60 mg PO DAILY per pcp 02/20/23 02/20/23 release gabapentin 600 mg tablet 600 mg PO DAILY Pain 02/20/23 02/20/23 hydrocodone 5 mg-acetaminophen 325 1 tab PO NEEDED PRN Pain 02/20/23 02/20/23 mg tablet meloxicam 15 mg tablet 15 mg PO DAILY per pcp 02/20/23 02/20/23 trazodone 50 mg tablet 50 mg PO DAILY per pcp 02/20/23 02/20/23 Allergies Allergy/AdvReac Type Severity Reaction Status Date / Time amoxicillin Allergy Verified 12/06/22 12:46 [facility] Disclaimer: The information contained in this section may have been updated after the patient was seen, as this information can be updated by other users. Social History Smoking Status: Current every day smoker tobacco type: cigarettes packs per day: 1 alcohol intake: never substance use type: marijuana current occupational status: unemployed Travel in the last 8 weeks: None household members: family housing: homeless ROS Obtained: Yes All systems reviewed & no additional complaints except as documented Physical Exam General General appearance: alert Head Head exam: normocephalic Eye Eye
[2023-02-20 06:59] LABS: Alanine Aminotransferase 33 U/L (12-78); Albumin Level 4.3 g/dl (3.5-5.0); Albumin/Globulin Ratio 1.3 (1.1-1.8); Alkaline Phosphatase 112 U/L (38-126); Amylase 98 U/L (30-110); Aspartate Amino Transferase 30 U/L (17-59); Bilirubin,Total 0.5 mg/dl (0.2-1.3); Blood Urea Nitrogen 20 mg/dl (9-20); Carbon Dioxide 24 mmol/L (22.0-30.0); Chloride 101 mmol/L (98-107); Creatinine Clearance Estimated 166 mL/min (50-200); Estimated Glomerular Filt Rate 117 ml/min (>60); GFR (African American) 142 ML/MIN (>60); Globulin 3.3 g/dL (1.3-3.2); Glucose 229 mg/dl (74-100); Lipase 138 U/L (23-300); Sodium 136 mmol/L (136-145); Total Protein,Serum 7.6 g/dl (6.3-8.2); Troponin I < 0.01 ng/ml (0.00-0.034)
[2023-02-20 07:00] LABS: Appearance,Urine CLEAR (Clear); Bilirubin,Urine Negative (Negative); Blood, Urine TRACE-I (Negative); Color,Urine YELLOW (Yellow); Glucose,Urine (UA) 2+ (Negative); Ketones,Urine Negative (Negative); Leukocyte Esterase,Urine TRACE (Negative); Microscopic, Urine URINE MICROSCOPIC (MICROSCOPIC); Nitrate,Urine POSITIVE (Negative); Protein,Urine 1+ (Negative); Specific Gravity, Urine 1.025 (1.005-1.030); Urobilinogen,Urine 0.2 EU/dl (0.2)
[2023-02-20 07:04] LABS: RBC,Urine Occasional #/hpf (0-3); WBC,Urine 20-50 #/hpf (0-3)
[2023-02-20 07:05] LABS: Bacteria,Urine 4+ /lpf; Squamous Epithelial Cell,Urine Occasional #/hpf (0-5)
[2023-02-20 07:10] LABS: Basophils % 0.2 % (0.1-2.0); Eosinophils # 0.2 K/mm3 (0.0-0.4); Hematocrit 47.8 % (42.0-52.0); Hemoglobin 15.4 g/dL (14.1-18.0); Lymphocytes # 1.4 K/mm3 (0.7-4.5); Mean Corpuscular HGB Conc 32.2 g/dL (31.8-35.4); Mean Corpuscular Hemoglobin 32.2 pg (27.0-31.2); Mean Corpuscular Volume 100.1 fl (80-94); Mean Platelet Volume 8.3 fl (7.4-10.4); Monocytes # 0.8 K/mm3 (0.1-1.0); Monocytes % 4.9 % (1.7-9.3); Neutrophils # 13.5 K/mm3 (1.8-7.8); Neutrophils % 84.8 % (37.0-80.0); Platelet Count 218 K/mm3 (142-424); Red Blood Count 4.78 M/mm3 (4.60-6.20); Red Cell Distribution Width 13.6 % (11.5-17.5); White Blood Count 15.9 K/mm3 (4.8-10.8)
[2023-02-20 07:11] LABS: MANUAL DIFFERENTIAL MANUAL DIFFERENTIAL (MANUAL DIFF)
--- NOTE | 2023-02-20 07:12 | PC.NURSE ---
pt to radiology
--- NOTE | 2023-02-20 07:30 | PC.NURSE ---
pt returned from radiology. rounded on pt. no needs at this time.
[2023-02-20 07:40] LABS: Lymphocytes % 7 % (10-50); Macrocytosis 1+; Monocytes % 3 % (2-9); Neutrophils % 90 % (42-76); Total Cells Counted 100
[2023-02-20 07:41] LABS: Platelet Estimate Normal
--- NOTE | 2023-02-20 07:49 | PC.NURSE ---
per radiology films are in lock status at this time
--- NOTE | 2023-02-20 07:54 | PC.NURSE ---
pt ambulatory to the restroom with no complications.
[2023-02-20 08:47] LABS: Troponin I < 0.01 ng/ml (0.00-0.034)
--- NOTE | 2023-02-20 09:01 | PC.NURSE ---
preliminary rad reports being sent to
--- NOTE | 2023-02-20 09:32 | PC.NURSE ---
Rounded on patient; no needs at this time. call charles within reach
== END 2023-02-20 09:36 | disposition still patient (30) ==
PROVIDERS: Emergency Provider Emergency Medicine; PCP Student in an Organized Health Care Education/Training Program
DX: R07.89 Other chest pain (principal); N39.0 Urinary tract infection, site not specified; R10.9 Unspecified abdominal pain; F17.210 Nicotine dependence, cigarettes, uncomplicated
CPT/HCPCS: 71046; 74177; 80053; 81001; 82150; 83690; 84484; 85007; 85025; 87086; 93005; 96361; 96374; 96375; 99285; J0696; J2405; Q9967

== ENCOUNTER 2023-03-06 17:40 | Emergency (ER) | payer BC, SELFPAY ==
--- NOTE | 2023-03-06 17:51 | PC.NURSE ---
pt placed in triage room and vitals obtained and given to Sue, Charge Nurse.
[2023-03-06 19:37] VITALS: BP 167/101; PULSE 76; RESP 16; TEMP 36.6; O2SAT 97; BMI 28.8
[2023-03-06 20:03] VITALS: BP 155/90; PULSE 75; O2SAT 96
--- NOTE | 2023-03-06 20:38 | XR_ITS ---
PROCEDURE INFORMATION: Exam: XR Left Foot Exam date and time: 03/06/2023 8:37 PM Age: 57 years old Clinical indication: Left; Patient HX: C/O wart on bottom of foot that is causing pain TECHNIQUE: Imaging protocol: Radiologic exam of the left foot. Views: 3 or more views. COMPARISON: No relevant prior studies available. FINDINGS: Bones/joints: No fractures. Normal alignment is maintained in the midfoot, hindfoot, and forefoot. Small os tibialis externum. Small plantar calcaneal spur. Normal variant bipartite medial and lateral sesamoids at the 1st MTP joint incidentally noted. Joint spaces are well-maintained. No blastic or lytic lesions. Normal osseous mineralization. No gross ankle joint effusion. No hindfoot coalition. Soft tissues: No periostitis. Mild soft tissue swelling in the plantar forefoot. No radiopaque foreign bodies. Other findings: No osteolysis. IMPRESSION: 1. No acute osseous abnormalities. 2. Mild soft tissue swelling in the plantar forefoot.
--- NOTE | 2023-03-06 21:09 | HMH.EDSKAF ---
Discharge Plan Disposition Patient Disposition: Home, Self-Care Condition: Good Prescriptions Prescriptions: No Action gabapentin 600 mg tablet 600 mg PO DAILY trazodone 50 mg tablet 50 mg PO DAILY hydrocodone-acetaminophen 5-325 mg tablet 1 tab PO NEEDED PRN (Reason: Pain) Patient Comments: TAKE 1 TABLET ORALLY EVERY 4 HOURS NEEDED FOR PAIN meloxicam 15 mg tablet 15 mg PO DAILY Patient Comments: TAKE 1 TABLET BY MOUTH EVERY DAY amlodipine 5 mg tablet 5 mg PO DAILY Patient Comments: TAKE 1 TABLET BY MOUTH EVERY DAY duloxetine 60 mg capsule,delayed release(DR/EC) 60 mg PO DAILY Patient Comments: TAKE 1 CAPSULE BY MOUTH EVERY DAY cefdinir 300 mg capsule 300 mg PO BID 10 Days Qty: 20 0RF lisinopril 40 MG tablet 20 mg PO DAILY pregabalin 100 MG capsule 100 mg PO TID insulin lispro 100 UNIT/ML insulin pen 0 - 12 unit SQ TIDWM insulin glargine 100 UNIT/ML insulin pen 20 unit SQ DAILY Referrals Follow up/Referrals: Diana Zapata DO [Primary Care Provider] - See instructions Activity Restrictions/Add. Instructions Additional Instructions/Restrictions: Finish all your antibiotics that was given to. Tylenol or Motrin for pain. Keep the area covered and dressed at all times. Clinical Impressions Clinical Impression: Foot callus, Left foot infection Instructions Patient Instructions: DI for Skin Abscess Discharge ED Provider: Emily Quñiones Skin/Abscess/FB HPI General Chief complaint: Skin/Abscess/Foreign Body Stated complaint: SOA, irritated spot on LT foot pinky toe Time Seen by Provider: 03/06/23 20:45 Mode of Arrival: Ambulatory Source of Information: Patient Limitations: No Limitations Description of Symptoms (Recalled from ER Triage Doc. by RN): Pt c/o left foot plantar wart that has been affecting him for over a week. He noticed a red streak going up his foot to his anknle 2-3 days ago. Pt c/o pain and inability to put pressure on left foot. He denies fevers, N/V/D, or drainage from site. History of Present Illness HPI narrative: Patient is a 57-year male who is a second left foot pain. Patient stated that he think there is a wart at his left foot and now the foot is infected. Patient went to some other facility and was given 2 different antibiotic. But today he came in and said he thinks he needs a ultrasound for his left leg because he has a history of DVT in that leg. Patient has no problems with swelling in the leg. Patient has a red streaking on the top of the foot and he was concerned about this as well. MD complaint: rash Onset (ago): day(s) Tetanus up to date: yes Location: L foot Severity: mild Severity scale (1-10): 5 Quality: aching and dull Consistency: constant Relieving factors: none Exacerbating factors: palpation and movement Context: none Associated symptoms: denies other symptoms Treatments prior to arrival: none Related Data Home Medications Medication Instructions Recorded Confirmed insulin glargine 100 unit/mL (3 20 unit SQ DAILY Diabetes 05/18/20 02/20/23 mL) subcutaneous pen insulin lispro 100 unit/mL 0 - 12 unit SQ TIDWM Diabetes 05/18/20 02/20/23 subcutaneous pen lisinopril 40 mg tablet 20 mg PO DAILY Hypertension 05/18/20 02/20/23 pregabalin 100 mg capsule 100 mg PO TID Pain 05/18/20 02/20/23 amlodipine 5 mg tablet 5 mg PO DAILY per pcp 02/20/23 02/20/23 duloxetine 60 mg capsule,delayed 60 mg PO DAILY per pcp 02/20/23 02/20/23 release gabapentin 600 mg tablet 600 mg PO DAILY Pain 02/20/23 02/20/23 hydrocodone 5 mg-acetaminophen 325 1 tab PO NEEDED PRN Pain 02/20/23 02/20/23 mg tablet meloxicam 15 mg tablet 15 mg PO DAILY per pcp 02/20/23 02/20/23 trazodone 50 mg tablet 50 mg PO DAILY per pcp 02/20/23 02/20/23 Previous Rx's Medication Instructions Recorded cefdinir 300 mg capsule 300 mg PO BID 10 days #20 caps 02/20/23 Allergies
[2023-03-06 21:11] VITALS: BP 182/98; PULSE 87; RESP 19; TEMP 36.8; O2SAT 98
== END 2023-03-06 21:25 | disposition home or self-care (01) ==
PROVIDERS: Emergency Provider Emergency Medicine; PCP Student in an Organized Health Care Education/Training Program
DX: L08.9 Local infection of the skin and subcutaneous tissue, unspecified (principal); M79.672 Pain in left foot; F17.210 Nicotine dependence, cigarettes, uncomplicated
CPT/HCPCS: 73630; 99283; 99284

== ENCOUNTER 2024-03-10 15:07 | Emergency (ER) | payer BC, SELFPAY ==
--- NOTE | 2024-03-10 15:04 | ECG_ITS ---
APPROVED REPORT Exam: Resting ECG HR:89 bpm ECG Measurements Heart Rate 89 AXES UT 180 P 76 QRSd 89 QRS 70 QT 332 T 71 QTc 379 Conclusion SINUS RHYTHM SEPTAL MYOCARDIAL INFARCTION , OF INDETERMINATE AGE [40+ ms Q WAVE IN V1/V2] ABNORMAL ECG UNCONFIRMED REPORT Electronically signed by : John Toscano, 03/10/2024 23:06:46
[2024-03-10 15:07] VITALS: BP 168/115; PULSE 92; RESP 19; TEMP 37.3; O2SAT 98; BMI 27.3
[2024-03-10 15:13] VITALS: PULSE 87
--- NOTE | 2024-03-10 15:15 | CT_ITS ---
PROCEDURE INFORMATION: Exam: CT Abdomen And Pelvis With Contrast Exam date and time: 03/10/2024 4:27 PM Age: 58 years old Clinical indication: Abdominal pain; Additional info: Left flank/abd pain TECHNIQUE: Imaging protocol: Computed tomography of the abdomen and pelvis with contrast. Radiation optimization: All CT scans at this facility use at least one of these dose optimization techniques: automated exposure control; mA and/or kV adjustment per patient size (includes targeted exams where dose is matched to clinical indication); or iterative reconstruction. Contrast material: ISOVUE; Contrast volume: 75 ml; Contrast route: IV; COMPARISON: CT ABDOMEN PELVIS W CON 02/20/2023 FINDINGS: Lungs: Refer to CT chest for lung bases. Liver: Stable 2 cm cyst left lobe of the liver. Liver otherwise unremarkable. Gallbladder and biliary ducts: Gallbladder nondistended but otherwise unremarkable. No evident bile duct dilatation. Pancreas: Normal. No ductal dilation. Spleen: Spleen is mildly enlarged measuring 15 cm with mild interval increase in size previously measuring 14.4 cm. Stable 20 mm right adrenal nodule. Adrenal glands: See Spleen finding. Kidneys and ureters: Multifocal left renal scarring redemonstrated. Nonobstructing 3 mm stone lateral midpole left kidney again noted. Interval development of a 15 mm round benign-appearing fluid density lesion in the inferior medial left kidney consistent with a cyst. No follow-up advised. Right kidney and ureter otherwise unremarkable with no obstructing stones or uropathy. Stomach and bowel: Unremarkable. No obstruction. No mucosal thickening. Appendix: Appendix is normal. No evidence of appendicitis. Intraperitoneal space: Unremarkable. No free air. No significant fluid collection. Vasculature: Unremarkable. No abdominal aortic aneurysm. Lymph nodes: Unremarkable. No enlarged lymph nodes. Urinary bladder: Unremarkable as visualized. Reproductive: Unremarkable as visualized. Bones/joints: Unremarkable. No acute fracture. Soft tissues: Unremarkable. IMPRESSION: 1. Mild splenomegaly with mild interval increase in size. 2. No acute abnormalities of the abdomen and pelvis. Nonemergent findings as above. COMMENTS: Consistent with the [employer]'s Incidental Findings Committee white paper (J Am Andrade Radiol 2018): Any incidental renal lesion less than 1 cm or classified as too small to characterize, or any incidental cystic renal lesion characterized as simple-appearing, is likely benign. No follow-up imaging is recommended for these lesions per consensus recommendations based on imaging criteria.
--- NOTE | 2024-03-10 15:16 | CT_ITS ---
PROCEDURE INFORMATION: Exam: CTA Chest With Contrast Exam date and time: 03/10/2024 4:27 PM Age: 58 years old Clinical indication: Pain; Left-sided; Additional info: Left pleuritic chest pain TECHNIQUE: Imaging protocol: Computed tomographic angiography of the chest with contrast. Exam focused on the arteries. 3D rendering (Not supervised by radiologist): MIP and/or 3D reconstructed images were created by the technologist. Radiation optimization: All CT scans at this facility use at least one of these dose optimization techniques: automated exposure control; mA and/or kV adjustment per patient size (includes targeted exams where dose is matched to clinical indication); or iterative reconstruction. Contrast material: ISOVUE 370; Contrast volume: 75 ml; Contrast route: INTRAVENOUS (IV); COMPARISON: CR XR CHEST 2V 02/20/2023 7:13 AM FINDINGS: Pulmonary arteries: Evaluation of the segmental pulmonary artery branches is limited by excessive motion artifact and cannot be evaluated for subtle acute emboli. Central pulmonary arteries are free of emboli and there are grossly no large occlusive peripheral emboli. Aorta: Unremarkable. No aortic aneurysm. No aortic dissection. Lungs: Emphysematous changes are noted. Posterior dependent atelectasis identified. 8 mm nodule posterior left upper lobe on axial image 50 of series 4. This is stable compared to CT abdomen of 02/20/2023 and 11/02/2022 but not included in the field of view on CT abdomen 05/18/2020. Pleural spaces: Unremarkable. No pneumothorax. No pleural effusion. Heart: Unremarkable. No cardiomegaly. No pericardial effusion. Coronary arteries: Mild coronary artery calcifications are noted. Lymph nodes: Unremarkable. No enlarged lymph nodes. Bones/joints: Unremarkable. No acute fracture. Soft tissues: Unremarkable. IMPRESSION: 1. No evident PE with above limitation. 2. Emphysematous changes and bibasilar atelectasis. 3. Stable 8 mm nodule left upper lobe dating back to 11/02/2022. Consider [address] in 1 year to ensure continued stability. COMMENTS: The presence of pulmonary emphysema on CT is an independent risk factor for lung cancer. In the absence of a history or active diagnosis of lung cancer, it is recommended that this patient with emphysema be evaluated for enrollment in a low dose CT lung cancer screening program.
--- NOTE | 2024-03-10 15:19 | ED_ITS ---
Discharge Plan Disposition Patient Disposition: Home, Self-Care Prescriptions Prescriptions: New cefdinir 300 mg capsule 300 mg PO BID 10 Days Qty: 20 0RF No Action gabapentin 600 mg tablet 600 mg PO DAILY amlodipine 5 mg tablet 5 mg PO DAILY Patient Comments: TAKE 1 TABLET BY MOUTH EVERY DAY lisinopril 40 MG tablet 20 mg PO DAILY insulin lispro 100 UNIT/ML insulin pen 0 - 12 unit SQ TIDWM insulin glargine 100 UNIT/ML insulin pen 20 unit SQ DAILY Referrals Follow up/Referrals: Provider,Referral, MD [Primary Care Provider] - See instructions Activity Restrictions/Add. Instructions Additional Instructions/Restrictions: No evidence of a renal mass which is something you are concerned about also you have a stable pulmonary nodule. No other medical emergency identified your urine did appear infected and with your left flank pain we are treating you for a kidney infection/pyelonephritis. Please follow-up with your primary care doctor as needed return with any high fevers or other concerns. Clinical Impressions Clinical Impression: Pyelonephritis Discharge ED Provider: Nathan Toscano [facility] General Chief Complaint: Chest Pain Stated Complaint: chest pain Time Seen by Provider: 03/10/24 15:15 Mode of Arrival: Ambulatory Source of Information: Patient Limitations: No Limitations Description of Symptoms (Recalled from ER Triage Doc. by RN): pt presents to ED with c/o chest pain. left sided flank pain. pt reports he has a kidney mass and mass in his chest. pt reports symptoms ongoing for the past few days. pt reports chest pain located in center of chest, pain radiates from back into chest. pt states that he recently moved her and has not found a new doctor. History of Present Illness HPI narrative: Patient is a 58-year-old male presents today with left flank and pleuritic pain. States that he has historically been followed at [facility] with his physicians there and recently was diagnosed with a left renal mass. He states that this is the first time he heard of it within this last year and that they have been following this for 3 years. He does not know how big it is he states he also did not know about this prior to this year and he recently moved which is why he is now here to [facility]. States that over the last 24 hours has developed left-sided pleuritic chest pain in the left inferior region of his chest wall. Still has increasingly worsening left flank pain in the area where he has this renal mass and he states that that pain has been persistent and chronic. No hematuria frequency urgency fevers chills states he does have some dysuria. Primarily talks about chest pain but no exertional symptoms radiation etc. Related Data Home Medications Medication Instructions Recorded Confirmed insulin glargine 100 unit/mL (3 20 unit SQ DAILY Diabetes 05/18/20 12/25/23 mL) subcutaneous pen insulin lispro 100 unit/mL 0 - 12 unit SQ TIDWM Diabetes 05/18/20 12/25/23 subcutaneous pen lisinopril 40 mg tablet 20 mg PO DAILY Hypertension 05/18/20 12/25/23 amlodipine 5 mg tablet 5 mg PO DAILY per pcp 02/20/23 12/25/23 gabapentin 600 mg tablet 600 mg PO DAILY Pain 02/20/23 12/25/23 Previous Rx's Medication Instructions Recorded cefdinir 300 mg capsule 300 mg PO BID 10 days #20 caps 03/10/24 Allergies Allergy/AdvReac Type Severity Reaction Status Date / Time amoxicillin Allergy Verified 12/25/23 11:19 [facility] Disclaimer: The information contained in this section may have been updated after the patient was seen, as this information can be updated by other users. Social History Smoking Status: Current every day smoker tobacco type: cigarettes packs per day: 1 alcohol intake: never substance use type: marijuana current occupational status: unemployed Travel in the last 8 weeks: None household members: family housing: homeless ROS Obtained: Yes All systems reviewed & no additional complaints except as documented Physical Exam General General appearance: alert and in no apparent distress Respiratory Respiratory exam: Present normal lung sounds bilaterally Cardiovascular Cardiovascular exam: Present regular rate and normal rhythm Abdominal Exam Abdominal exam: Present soft and distention; Absent tenderness Neurological Exam Neurological exam: Present alert and oriented X3 HEART Score HEART Score HEART Score assessment performed?: Yes History (anamnesis): Slightly suspicious ECG: Normal Age: 45-65 years Risk factors: No known risk factors Troponin: </= normal limit HEART Score: 1 Critical Care Critical Care Time Critical Care Time: No Medical Decision Making Jonathan Inquiry Pt receiving controlled substance: No Vital Signs Vital Signs: 03/10/24 15:07 03/10/24 15:13 03/10/24 15:30 Temperature 99.1 F Temperature Source Oral Pulse Rate 87 84 Pulse Rate [Left Radial] 92 H Respiratory Rate 19 16 Blood Pressure 158/100 H Blood Pressure [Right Arm] 168/115 H Blood Pressure Mean [Right Arm] 132 02 Sat by Pulse Oximetry 98 97 Oxygen Delivery Method Room Air 03/10/24 16:01 03/10/24 16:42 Temperature Temperature Source Pulse Rate 82 78 Pulse Rate [Left Radial] Respiratory Rate 12 Blood Pressure 142/102 H Blood Pressure [Right Arm] Blood Pressure Mean [Right Arm] 02 Sat by Pulse Oximetry 96 97 Oxygen Delivery Method Lab Data Lab results reviewed: Yes I reviewed the patient's lab results. Labs: Lab Results 03/10/24 15:08: WBC 5.2, RBC 4.88, Hgb 16.7, Hct 48.8, MCV 100.0 H, MCH 34.1 H, MCHC 34.2, RDW 13.5, Plt Count 193, MPV 8.1, Neut % (Auto) 68.2, Lymph % (Auto) 18.7, Bent % (Auto) 11.8 H, Eos % (Auto) 0.8, Baso % (Auto) 0.5, Neut # (Auto) 3.5, Lymph # (Auto) 1.0, Bent # (Auto) 0.6, Eos # (Auto) 0.0, Baso # (Auto) 0.0, Sodium 133 L, Potassium 4.0, Chloride 103, Carbon Dioxide 25, Anion Gap 9.0, BUN 11, Creatinine 0.60 L, Estimated Creat Clear 183, Estimated GFR 139, Est GFR ( Amer) 169, Glucose 385 H, Calcium 9.2, Total Bilirubin 0.8, AST 37, ALT 34, Alkaline Phosphatase 124, Troponin I < 0.01, Total Protein 7.5, Albumin 4.1, Globulin 3.4 H, Albumin/Globulin Ratio 1.2, Lipase 373 H 03/10/24 15:52: Urine Color Yellow, Urine Appearance Clear, Urine pH 6.0, Ur Specific [place] 1.010, Urine Protein Trace, Urine Glucose (UA) 3+, Urine Ketones Negative, Urine Blood Trace-i, Urine Nitrate Positive, Urine Bilirubin Negative, Urine Urobilinogen 2.0, Ur Leukocyte Esterase Negative, Urine RBC 3-5, Urine WBC Occasional, Ur Squamous Epith Cells Occasional, Urine Bacteria 1+ 03/10/24 15:08 03/10/24 15:08 Response Orders (Tests/Meds): ED MEDICATIONS Discontinued Medications Generic Name Dose Route Start Last Admin Trade Name Tim PRN Reason Stop Dose Admin Lactated Ringer's 1,000 mls @ 999 mls/hr 03/10/24 15:15 03/10/24 16:02 Lactated Ringer's 1000 Ml Bag IV 03/10/24 16:15 999 mls/hr .Q1H1M ABDI Administration Iopamidol 75 ml 03/10/24 16:22 03/10/24 16:49 Iopamidol-370 (76%);100ml Bottle IV 03/10/24 16:23 75 ml ONCE ONE Administration Ketorolac Tromethamine 15 mg 03/10/24 15:15 03/10/24 16:02 Ketorolac 30mg/Ml Vial IV 03/10/24 15:16 15 mg ONCE ONE Administration Ondansetron HCl 4 mg 03/10/24 15:15 03/10/24 16:02 Ondansetron 4mg/2ml Vial IV 03/10/24 15:16 4 mg ONCE ONE Administration Sodium Chloride 10 ml 03/10/24 16:22 03/10/24 16:49 Sodium Chloride 0.9% 10ml Syr (Rad Only) IV 03/10/24 16:23 10 ml ONCE ONE Administration Sodium Chloride 50 ml 03/10/24 16:22 03/10/24 16:49 0.9 % Sodium Chloride 50 Ml Vial IV 03/10/24 16:23 50 ml ONCE ONE Administration ORDERS Category Date Time Status CT abdomen pelvis w con Stat Cat Scan 03/10/24 15:[address] angio chest PE protocol Stat Cat Scan 03/10/24 15:16 Completed CBC w/Auto Diff [Complete Blood Count Auto Diff] Stat Lab 03/10/24 15:08 Completed CMP [Comprehensive Metabolic Panel] Stat Lab 03/10/24 15:08 Completed Lipase Stat Lab 03/10/24 15:08 Completed Trop I [Troponin I] Stat Lab 03/10/24 15:08 Completed Troponin I Q3H Lab 03/10/24 18:30 Ordered Troponin I Q3H Lab 03/10/24 21:30 Ordered UA [Urinalysis and Microscopic] Stat Lab 03/10/24 15:52 Completed ECG Data Tracing #1: Attestation: I reviewed this ECG and interpreted as documented below: ECG Narrative: Ventricular rate of 89 normal sinus rhythm no acute ischemic changes noted normal axis no significant conduction abnormalities MDM Narrative Medical Decision Narrative: Well-appearing 58-year-old male presenting today with above history and physical. Will get a CT PE and CT abdomen pelvis given his history of a renal mass and now new left-sided pleuritic chest pain. Unclear as to size and the nature of this mass he states no one has told him what it is he is not had it biopsied in the past. He has been followed at [facility] now and there is some oral today. He does have some tenderness on his abdomen other things in the differential could include colitis diverticulitis etc. Also could have pneumonia or some peripheral lung enhancing lesion etc. IV fluids Toradol Zofran have been administered and will reassess. Reassessment 6:02 PM patient feeling much better CT scans of the chest abdomen pelvis were performed which I personally interpreted shows no cardiopulmonary or intra-abdominal emergency specifically no evidence of a renal mass this is all consistent with radiology read as well. There is a small pulmonary nodule that is stable for 1 year. He is aware of this. Additionally patient did have a nitrate positive urine he has had some burning frequency on further questioning with left flank pain we will treat him for pyelonephritis. Has a documented penicillin allergy but states that he has not had any anaphylactic reactions in the past. Third-generation cephalosporin cefdinir has been prescribed. Will treat him for 10 days advised that he follow-up with primary care doctor and return with any worsening symptoms. He was reassured specifically about the renal mass and was very happy about these findings.
[2024-03-10 15:24] LABS: Basophils % 0.5 % (0.1-2.0); Eosinophils % 0.8 % (0.1-12.0); Hematocrit 48.8 % (42.0-52.0); Hemoglobin 16.7 g/dL (14.1-18.0); Lymphocytes % 18.7 % (10-50); Mean Corpuscular HGB Conc 34.2 g/dL (31.8-35.4); Mean Corpuscular Hemoglobin 34.1 pg (27.0-31.2); Mean Platelet Volume 8.1 fl (7.4-10.4); Monocytes # 0.6 K/mm3 (0.1-1.0); Monocytes % 11.8 % (1.7-9.3); Neutrophils # 3.5 K/mm3 (1.8-7.8); Neutrophils % 68.2 % (37.0-80.0); Platelet Count 193 K/mm3 (142-424); Red Blood Count 4.88 M/mm3 (4.60-6.20); Red Cell Distribution Width 13.5 % (11.5-17.5); White Blood Count 5.2 K/mm3 (4.8-10.8)
[2024-03-10 15:25] LABS: Chloride 103 mmol/L (98-107); Sodium 133 mmol/L (136-145)
[2024-03-10 15:27] LABS: Alanine Aminotransferase 34 U/L (12-78); Aspartate Amino Transferase 37 U/L (17-59); Blood Urea Nitrogen 11 mg/dl (9-20); Creatinine Clearance Estimated 183 mL/min (50-200); Estimated Glomerular Filt Rate 139 ml/min (>60); GFR (African American) 169 ML/MIN (>60)
[2024-03-10 15:28] LABS: Albumin Level 4.1 g/dl (3.5-5.0); Albumin/Globulin Ratio 1.2 (1.1-1.8); Alkaline Phosphatase 124 U/L (38-126); Bilirubin,Total 0.8 mg/dl (0.2-1.3); Calcium 9.2 mg/dl (8.4-10.2); Carbon Dioxide 25 mmol/L (22.0-30.0); Globulin 3.4 g/dL (1.3-3.2); Glucose 385 mg/dl (74-100); Lipase 373 U/L (23-300); Total Protein,Serum 7.5 g/dl (6.3-8.2)
[2024-03-10 15:30] VITALS: BP 158/100; PULSE 84; RESP 16; O2SAT 97
[2024-03-10 15:48] LABS: Troponin I < 0.01 ng/ml (0.00-0.034)
[2024-03-10 15:57] LABS: Microscopic, Urine URINE MICROSCOPIC (MICROSCOPIC)
[2024-03-10 16:01] VITALS: BP 142/102; PULSE 82; RESP 12; O2SAT 96
[2024-03-10] MEDS: LACTATED RINGERS 1000ML 1,000 ML 999 ML IV (16:02)
[2024-03-10] MEDS: ONDANSETRON 4MG/2ML VIAL 4 MG IV (16:02)
[2024-03-10] MEDS: KETOROLAC 30MG/ML VIAL 15 MG IV (16:02)
[2024-03-10 16:04] LABS: Appearance,Urine CLEAR (Clear); Bilirubin,Urine Negative (Negative); Blood, Urine TRACE-I (Negative); Color,Urine YELLOW (Yellow); Glucose,Urine (UA) 3+ (Negative); Ketones,Urine Negative (Negative); Leukocyte Esterase,Urine Negative (Negative); Nitrate,Urine POSITIVE (Negative); Protein,Urine TRACE (Negative)
[2024-03-10 16:11] LABS: Bacteria,Urine 1+ /lpf; Squamous Epithelial Cell,Urine Occasional #/hpf (0-5); WBC,Urine Occasional #/hpf (0-3)
[2024-03-10 16:42] VITALS: PULSE 78; O2SAT 97
[2024-03-10] MEDS: SODIUM CHLORIDE 0.9% 10ML SYR (RAD ONLY) 10 ML IV (16:49)
[2024-03-10] MEDS: IOPAMIDOL-370 (76%);100ML BOTTLE 75 ML IV (16:49)
[2024-03-10] MEDS: 0.9 % SODIUM CHLORIDE 50 ML VIAL IV (16:49)
[2024-03-10 18:08] VITALS: BP 142/102; PULSE 78; RESP 12; TEMP 37.3; O2SAT 97
[2024-03-10 18:47] LABS: Troponin I < 0.01 ng/ml (0.00-0.034)
== END 2024-03-10 18:12 | disposition home or self-care (01) ==
PROVIDERS: Emergency Provider Student in an Organized Health Care Education/Training Program
DX: N10 Acute pyelonephritis (principal); R07.2 Precordial pain; R10.32 Left lower quadrant pain; M54.59 Other low back pain; E87.1 Hypo-osmolality and hyponatremia; F17.210 Nicotine dependence, cigarettes, uncomplicated
CPT/HCPCS: 71275; 74177; 80053; 81001; 83690; 84484; 85025; 93005; 96361; 96374; 96375; 99285; J1885; J2405; J7120; Q9967